=== PATIENT | female | born 1940 | race Caucasian/White ===

== ENCOUNTER → 2016-09-27 | Outpatient (CLI) | payer OTHER ==
[~2016-09-27] MED LIST: ADVAIR 250/501 EA INH; ALBUTEROL0.09 MG/A3; ALPRAZOLAM0.5 M2 PO; ASCRIPTIN1 TAB PO; ASPIRIN81 MG PO; CALCIUM + D 6001 TA1 PO; CELEBREX200 MG PO; COREG3.125 MG PO; CYMBALTA60 MG PO; ENALAPRIL20 MG PO; FISH OIL 10001000 MG PO; HYDROCODONE BIT1 T11 PO; LEVOTHYROXINE0.15 MG PO; LISINOPRIL20 MG PO; MEPERIDINE PO; MIRTAZAPINE30 MG PO; NASONEX0.05 MG/AC NAS; NASONEX0.05 MG/AC NS; NEXIUM20 MG PO; NEXIUM40 MG PO; PROAIR HFA0.09 MG/AC INH; PROVENTIL0.09 MG/AC IH; SPIRIVA18 MCG PO; VICODIN 5/500 505 MG PO; VICODIN ES 7501 TAB PO; ZOCOR20 MG PO
== END | disposition home or self-care (01) ==
LOC: MAMMO 09-16 02:52
DX: Z12.31 Encounter for screening mammogram for malignant neoplasm of breast (principal)

== ENCOUNTER → 2017-07-25 | Outpatient (CLI) | payer OTHER ==
[2017-07-25 09:28] LABS: HEMATOCRIT 39.3 % (37.0-47.0); HEMOGLOBIN 13.2 g/dl (12.0-16.0); MEAN CELL VOLUME 109.5 fl (81.0-99.0); MEAN CORPUSCULAR HGB 36.8 pg (27.0-31.0); MEAN CORPUSCULAR HGB CONC 33.6 g/dl (33.0-37.0); MEAN PLATELET VOLUME 12.4 fl (9.6-12.3); PLATELET COUNT AUTOMATED 258 10*3/uL (130-400); RED BLOOD COUNT 3.59 10*6/uL (4.10-5.10); RED CELL DISTRI WIDTH 16.4 % (0-14.5); WHITE BLOOD COUNT 5.9 10*3/uL (4.8-10.8)
[2017-07-25 10:00] LABS: PLATELET SUFFICIENCY NORMAL (NORMAL); TOTAL CELLS COUNTED 100 #CELLS
[2017-07-25 10:01] LABS: OVALOCYTES FEW
[2017-07-25 10:04] LABS: ALBUMIN 3.4 gm/dl (3.1-4.5); BUN 12 mg/dl (7-24); CHLORIDE 107 mmol/L (98-107); CHOLESTEROL 213 mg/dL (<200); CREATININE 0.78 mg/dL (0.55-1.02); POTASSIUM 3.9 mmol/L (3.5-5.1); SGOT/AST 9 IU/L (3-35); SGPT/ALT 15 U/L (12-78); SODIUM 143 mmol/L (136-145); TRIGLYCERIDES 72 mg/dl (<150); VLDL CHOLESTEROL 14 mg/dL (6-40)
[2017-07-25 10:14] LABS: ALKALINE PHOSPHATASE 71 U/L (45-117); HDL CHOLESTEROL 55 mg/dl (40-60); LDL CHOLESTEROL 144 mg/dL (9-159); TOTAL PROTEIN 6.9 gm/dL (6.4-8.2)
== END | disposition home or self-care (01) ==
LOC: LAB 08:29
PROVIDERS: Internal Medicine
DX: E03.9 Hypothyroidism, unspecified (principal); D75.89 Other specified diseases of blood and blood-forming organs; I10 Essential (primary) hypertension; E55.9 Vitamin D deficiency, unspecified

== ENCOUNTER 2018-01-15 11:01 | Emergency (ER) | payer OTHER ==
[~2018-01-15] VITALS: Ht 162.5 cm; Wt 67.1 kg
--- NOTE | ~2018-01-15 | EKG ---
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
[2018-01-15 11:06] VITALS: BP 161/54
[2018-01-15 11:21] LABS: BILIRUBIN NEGATIVE (NEGATIVE); BLOOD NEGATIVE (NEGATIVE); CLARITY CLEAR (CLEAR); COLOR YELLOW (YELLOW); GLUCOSE NEGATIVE (NEGATIVE); KETONE NEGATIVE (NEGATIVE); LEUKO ESTERASE NEGATIVE (NEGATIVE); NITRITE NEGATIVE (NEGATIVE); SPECIFIC GRAVITY <= 1.005 (1.005-1.030); UROBILINOGEN 0.2 E.U./dl (0.2-1.0)
[2018-01-15 11:40] LABS: BACTERIA TRACE; RBC 0-2 rbc/hpf (0-2); WBC 0-2 wbc/hpf (0-5)
[2018-01-15 11:47] LABS: HEMATOCRIT 37.5 % (37.0-47.0); HEMOGLOBIN 12.3 g/dl (12.0-16.0); MEAN CELL VOLUME 110.3 fl (81.0-99.0); MEAN CORPUSCULAR HGB 36.2 pg (27.0-31.0); MEAN CORPUSCULAR HGB CONC 32.8 g/dl (33.0-37.0); MEAN PLATELET VOLUME 11.2 fl (9.6-12.3); NUCLEATED RED BLOOD CELL 0.4 % (0.0-0.0); PLATELET COUNT AUTOMATED 304 10*3/uL (130-400); RED CELL DISTRI WIDTH 17.6 % (0-14.5); WHITE BLOOD COUNT 5.6 10*3/uL (4.8-10.8)
[2018-01-15 11:55] LABS: ACT PARTIAL THROMBO TIME 24.3 SECONDS (20.8-31.5); INTERNATIONAL NORM RATIO 0.9 (2.0-3.5)
[2018-01-15 12:01] LABS: ALBUMIN 3.7 gm/dl (3.1-4.5); ALKALINE PHOSPHATASE 63 U/L (45-117); BUN 11 mg/dl (7-24); CHLORIDE 105 mmol/L (98-107); LIPASE 144 U/L (73-393); POTASSIUM 4.2 mmol/L (3.5-5.1); SGOT/AST 15 IU/L (3-35); SGPT/ALT 22 U/L (12-78); SODIUM 141 mmol/L (136-145); TOTAL PROTEIN 7.8 gm/dL (6.4-8.2)
[2018-01-15 12:04] LABS: TROPONIN I < 0.015 ng/ml (<0.045)
[2018-01-15 12:12] LABS: PLATELET SUFFICIENCY NORMAL (NORMAL); TOTAL CELLS COUNTED 100 #CELLS
[2018-01-15] MEDS ORDERED: NEXIUM40 MG PO (13:28)
[2018-04-10] MEDS ORDERED: Ipratropium Brom3 ML INH (09:30)
== END 2018-01-15 13:33 | disposition home or self-care (01) ==
LOC: ED 11:01
PROVIDERS: Emergency Medicine
DX: K29.00 Acute gastritis without bleeding (principal); Z79.899 Other long term (current) drug therapy; Z79.82 Long term (current) use of aspirin

== ENCOUNTER → 2018-04-20 | Day surgery (SDC) | payer OTHER ==
[~2018-04-20] VITALS: Ht 165.1 cm; Wt 63.5 kg
[~2018-04-20] MED LIST changes: +Ipratropium Brom3 ML INH
--- NOTE | ~2018-04-20 | PROC NOTE ---
[place], [place] PROCEDURE NOTE NAME: TONJA SUE [facility] #: [id number] UNIT #: [id number] ROOM: DOCTOR: REBECA CHAPMAN MD BIRTHDATE: [birth year] DOS: 04/20/2018 PREOPERATIVE DIAGNOSIS: Lower gastrointestinal bleed. POSTOPERATIVE DIAGNOSIS: Gastritis, duodenitis, diverticulosis, colon polyp (42 cm). PROCEDURE: EGD with antral biopsy x 2, colonoscopy with polypectomy x 1. ENDOSCOPIST: Rebeca Chapman MD HOME PLANNING CONSULTANT SALESPERSON: FABBY. ANESTHESIA: MAC. INDICATIONS: This is a 77-year-old lady with a history of lower GI bleed who is here for the above-mentioned procedure. The procedure and its complications were explained to the patient in detail preoperatively. Complications that were discussed included but were not limited to, bleeding, colon perforation, stomach perforation, and missed lesions. She agreed to proceed. DESCRIPTION OF PROCEDURE: After identifying the patient, the patient was brought to the endoscopy suite and placed in the left lateral position. After IV sedation was administered, a timeout procedure was called and a bite block was placed and the EGD was performed first. An adult gastroscope was introduced into the oral cavity and advanced sequentially into the pharynx, esophagus, stomach and the first 2 parts of the duodenum. There was found to be generalized gastritis as well as mild duodenitis. Two antral biopsies were taken and sent for histopathological diagnosis. Thereafter, the scope was withdrawn. The esophagus was within normal limits. At this point, attention was turned towards the colonoscopy. A digital rectal exam was performed, which was within normal limits. An adult colonoscope was now introduced into the anal canal and advanced sequentially into the rectum, sigmoid colon, descending colon, transverse colon and ascending colon up to the cecum. Upon reaching the cecum, the scope was withdrawn. Total withdrawal time was approximately 10 minutes. At approximately 42 cm, there was found to be a polyp that was removed with the help of snare polypectomy and a specimen was then retrieved and sent for histopathological diagnosis. There was also found to be mild uncomplicated diverticulosis. The scope was then withdrawn and the patient was brought back to the recovery room in stable fashion. Based on these findings, the patient is recommended to have another colonoscopy in the next 3-5 years or sooner if she had continued symptoms. These findings were discussed with the patient's daughter in the recovery room. [place], [place] PROCEDURE NOTE NAME: TONJA SUE UNIT #: [id number] ROOM: DOCTOR: REBECA CHAPMAN MD BIRTHDATE: [birth year] Rebeca Chapman MD CM:PROCNOTE:PROCEDURE NOTE 0922 1736 REBECA CHAPMAN MD
[2018-04-20 07:50] VITALS: BP 152/59
[2018-04-20 09:12] VITALS: BP 130/59
[2018-04-20 09:27] VITALS: BP 154/62
[2018-04-20 09:42] VITALS: BP 153/60
[2018-04-20 09:57] VITALS: BP 151/58
== END | disposition home or self-care (01) ==
LOC: SDC 04-10 10:15
DX: D12.5 Benign neoplasm of sigmoid colon (principal); K57.30 Diverticulosis of large intestine without perforation or abscess without bleeding; K29.50 Unspecified chronic gastritis without bleeding; K29.80 Duodenitis without bleeding; J44.9 Chronic obstructive pulmonary disease, unspecified; M19.90 Unspecified osteoarthritis, unspecified site; E03.9 Hypothyroidism, unspecified; I10 Essential (primary) hypertension; K21.9 Gastro-esophageal reflux disease without esophagitis; M81.0 Age-related osteoporosis without current pathological fracture; F41.9 Anxiety disorder, unspecified; F32.9 Major depressive disorder, single episode, unspecified; F17.210 Nicotine dependence, cigarettes, uncomplicated; G43.909 Migraine, unspecified, not intractable, without status migrainosus; Z79.82 Long term (current) use of aspirin; Z79.899 Other long term (current) drug therapy; Z90.710 Acquired absence of both cervix and uterus; Z98.51 Tubal ligation status; Z98.890 Other specified postprocedural states; Z72.89 Other problems related to lifestyle; Z98.49 Cataract extraction status, unspecified eye; Z82.49 Family history of ischemic heart disease and other diseases of the circulatory system; Z80.0 Family history of malignant neoplasm of digestive organs

== ENCOUNTER 2018-07-02 15:23 | Inpatient (IN) | payer OTHER ==
[~2018-07-02] VITALS: Ht 162.5 cm; Wt 68.0 kg
--- NOTE | ~2018-07-02 | O ---
[place], [place] OPERATIVE NOTE NAME: TONJA SUE UNIT #: [id number] ROOM: 506 DOCTOR: GUS ARREOLA,IAIN BIRTHDATE: [birth year] DOS: INDICATIONS: The patient has presented with multiple medical problems, among which has been persistent epigastric distress, dyspepsia, anemia, undergoing investigation. Consultation has been dictated. PROCEDURE: Today's procedure part of investigation is panendoscopy plus biopsy and photographic series. PREMEDICATION: Propofol. SCOPE: Olympus forward-viewing gastroscope Q10 video. REPORT: After putting the patient in left lateral position and application of lubricant to the scope, the scope was introduced. Thereafter, under direct visualization, advanced through the length of the esophagus without difficulty. Gastric pouch was entered. Multiple gastric erosions and small ulceration in antrum were photographed. Biopsy from margin of 1 was obtained. Duodenal bulb, second and third part within normal limits. The patient extubated, tolerated the procedure well. IMPRESSION: Multiple antral erosions, small ulceration, gastritis, status post biopsy. PLAN AND DISCUSSION: Protonix 40 mg daily would be definitive, plan of management, regular diet as tolerated. Follow up on H and H IAIN WEBER MD CM:OPRECORD:OPERATIVE NOTE 1214 1231 IAIN WEBER MD 07/11/18 1231 interface
--- NOTE | ~2018-07-02 | EKG ---
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
--- NOTE | ~2018-07-02 | CON ---
[place], [place] REPORT OF CONSULTATION NAME: TONJA SUE [facility] #: [id number] UNIT #: [id number] ROOM: 506 DOCTOR: GERRI CHAHAL MDEJ BIRTHDATE: [birth year] DOS: 07/04/2018 PULMONARY CONSULTATION, EVALUATION AND MANAGEMENT CONSULTATION REQUESTED BY: Hospitalist services. REASON FOR CONSULTATION: For assessment of acute pneumonia. The patient report was rather noted quite limited. The history contained document is essential review of medical records by other physician notes well. HISTORY OF PRESENT ILLNESS: This is a 78-year-old white female who has been in the hospital and treated under care of the hospitalist services on 07/02/2018. The patient presented to the hospital Emergency Room with ongoing symptoms of not feeling well about a month. She has been reporting symptoms of shortness of breath that has been gradually worsening occurring with mild exertion activities. The symptoms were also associated coughing with recurrent symptoms. The patient denies symptoms of chest pain. She has been usually seen by the primary care attending and then sent to the hospital. She has been assessed in the hospital Emergency Room and admitted to the hospital for further care of ongoing pneumonia and the pleural effusion, which were noted on the chest x-ray. Presently, she had been receiving the intravenous Rocephin and Zithromax for the medical management of pneumonia and the bronchodilator for medical management of bronchospasm as well. REVIEW OF SYSTEMS: CONSTITUTIONAL SYMPTOMS: Complaining of fatigue and tiredness. Does not report any symptoms of fever or chills. EYES: Denies any burning, redness, or tenderness. EARS, NOSE, AND THROAT: Denies sore throat, hoarseness, otalgia, or epistaxis. CARDIOVASCULAR SYSTEM: Noted with some edema of the lower extremity and ankles with palpitations. GASTROINTESTINAL: Denies any angina pain. GASTROINTESTINAL SYMPTOMS: Denies dysphagia, nausea, vomiting, diarrhea, abdominal pain, hematemesis, melena, or hematochezia. SKIN: Denies abnormal lesions or rashes. CENTRAL NERVOUS SYSTEM: No dizziness, headache, diplopia or syncopal episodes. Remaining systems were reviewed, they were noted all negative. PAST MEDICAL HISTORY: Known as: 1. COPD. 2. Bronchial asthma. 3. Essential hypertension. 4. Depression. 5. Hyperlipidemia. 6. Hypothyroidism. 7. Overactive bladder. 8. Chronic hypoxic respiratory failure, use of oxygen 2 liter nasal cannula. 9. Vitamin D deficiency. [place], [place] REPORT OF CONSULTATION NAME: TONJA SUE UNIT #: [id number] ROOM: [facility] DOCTOR: EJ FELIZ MD BIRTHDATE: [birth year] 10. Tobacco use. PAST SURGICAL HISTORY: Reported as: 1. Surgery of the sinuses. 2. Tubal ligation. 3. Cataract extraction and lens implantation. 4. Complete hysterectomy. 5. Tympanoplasty of the left ear. 6. Right ear surgery as well. SOCIAL HISTORY: The patient lives at home. She has been noted tobacco use from teenager, pack of cigarettes per day, discontinued approximately in 2008. There was no history of alcohol use or any illicit drug use was reported FAMILY HISTORY: Unknown. HOME MEDICATIONS: Listed as aspirin, Plavix, vitamin D, Celexa, Cymbalta, enalapril, vitamin D, fish oil, DuoNeb, levothyroxine, Remeron, oxybutynin, and simvastatin. CURRENT MEDICATIONS: Administered for on this hospitalization were noted as the use of most of the home medications have been resumed the same strength. DuoNeb has been ordered every 6 hours. The patient receiving IV Zithromax and the Rocephin. DRUG ALLERGIES NOTED: No known drug allergies. PHYSICAL EXAMINATION: GENERAL: A 78-year-old elderly female, currently lying in the bed without any distress. Height of 5 feet 4 inches, weight 150 pounds. VITAL SIGNS: For the patient, which have been recorded shows a normal temperature in the last 24 hours, respiratory rate 18-20, heart rate of 67-73, blood pressure 136/76-139/57. HEENT: Shows head was atraumatic. Eyes nonicterus. NECK: Supple. CARDIOVASCULAR: S1, S2 is audible. LUNGS: Noted with crackles essentially noted in the lower portion of the lungs bilaterally. ABDOMEN: Flat, soft, nontender. Bowel sounds present. EXTREMITIES: Without any edema, clubbing or cyanosis. VISIBLE SKIN: No lesions or rashes. CENTRAL NERVOUS SYSTEM: The patient's cranial nerves 2-12 intact. MUSCULOSKELETAL: Without any acute deformities. LABORATORY DATA: The CBC on admission 07/02/2018, WBC count normal, hemoglobin 7.7, platelet count was normal, 2.3% eosinophils. The lactic acid 0.7. CMP that was done, 225. Normal BUN and creatinine. CO2 was 34. The influenza A, B, nasal washing antigen, which were done on 07/02/2018 were negative. CBC that was done on 07/04/2018, hemoglobin 6.2, hematocrit 22.4, platelet count 251,000. BMP as a normal BUN and creatinine. CO2 was still elevated at 36. Blood [place], [place] REPORT OF CONSULTATION NAME: TONJA SUE UNIT #: [id number] ROOM: [facility] DOCTOR: GERRI CHAHAL [facility] BIRTHDATE: [birth year] culture from 07/02/2018 so far has not shown any bacterial growth. Final culture results were pending. Review of the radiology data: The chest x-ray that was done appears to have elevation of the right hemidiaphragm, possibility of volume loss with infiltration as well as associated pleural fluid or pleural thickening. There was no chest x-ray available for the last several years to assess the current finding chronicity for last few years. IMPRESSION: 1. The patient has been currently admitted to the hospital, was noted with increased respiratory symptoms. The patient finding consistent for acute pneumonia is very likely. 2. Clpca-gj-juwwixd hypoxic respiratory failure requiring high amount of oxygen supplementation and the usual 2 liters currently treated initially with 6 liter nasal cannula, currently receiving 4-5 liters of oxygen supplementation. 3. Rule out endobronchial obstruction with atelectasis, rule out malignancy as well and associated pleural fluids. 4. Chronic obstructive pulmonary disease and bronchial asthma does not seem to have an acute exacerbation at present time. History of past tobacco use, which has been discontinued several years ago. History of essential hypertension and multiple other comorbid conditions were known as well. 5. Progressive anemia, rule out gastrointestinal bleeding as well. 6. Metabolic alkalosis, etiology unclear, may be related to chronic obstructive pulmonary disease or other etiologies. PLAN OF MANAGEMENT: The patient will be ordered CT scan of the chest with intravenous contrast for further assessment at this time. Continue current antibiotics and no change in treatment will be advised. After the CT scan of the chest, assess possible consideration of bronchoscopy. Blood transfusion may be needed because of anemia and assessment from the GI services should be recommended for the assessment of current anemia. She does have a history of past polyp removed with colonoscopy. Titrate oxygen supplementation, maintain pulse ox 92% or greater. Obtain the arterial blood gas to assess the ventilatory status and hypoxia. BiPAP could be used if hypoxia persists. Other therapy, plan of management, care plan and additional treatment changes will be done based on progression of the illness. Thanks for allowing me to participate in the care of this patient. EJ TALLEY MD CM:CONSTR:REPORT OF CONSULTATION 1315 07/20/18 1228 interface
--- NOTE | ~2018-07-02 | PR ---
[place], [place] PROGRESS NOTE NAME: TONJA SUE [facility] #: [id number] UNIT #: [id number] ROOM: 506 DOCTOR: GERRI CHAHAL MD,EJ BIRTHDATE: [birth year] DOS: 07/11/2018 PULMONARY PROGRESS NOTE SUBJECTIVE: The patient was doing better with reduction in symptoms of shortness breath and cough after bronchoscopy. Large plugs of the mucus removed from the endobronchial tree, especially in attention to the right middle lobe and the right lower lobe. She denies symptoms of fever or chills. General weakness and fatigue was noted. She denies symptoms of hemoptysis. She denies symptoms of nausea, vomiting, diarrhea, or any abdominal pain. Oxygen supplementation was still continued, at the present time she was receiving oxygen supplementation of 4 liters nasal cannula decreased from 5 liters. OBJECTIVE HEENT: Examination shows head was atraumatic. Eyes nonicterus. NECK: Supple. CARDIOVASCULAR SYSTEM: S1, S2 is audible. LUNGS: Decreased breath sounds still noted in the right lower lung, but improvement noted compared to previous examination. There was no wheezing. ABDOMEN: Soft, nontender. Bowel sounds present. EXTREMITIES: Noted without any edema. MUSCULOSKELETAL: Without any acute deformities. CENTRAL NERVOUS SYSTEM: The patient's cranial nerves 2-12 intact. LABORATORY DATA: Bronchial washing, Gram stain was noted with initial culture with no bacterial growth, final culture results were pending. Gram stain of the bronchial washings of yesterday, few epithelial cells, many white blood cells, and no organisms seen. CBC of this morning: WBC count is normal, hemoglobin is 7.9, hematocrit is 27.0, and platelet count is normal. The BMP, normal BUN and creatinine, CO2 was 39. IMAGING DATA: The chest x-ray shows improvement in the aeration of the right middle lobe, which were noted significantly with small remaining area of atelectasis in the right lower lobe with associated pleural effusion. IMPRESSION: 1. The patient was noted with acute on chronic hypercapnic and hypoxic respiratory failure, acute exacerbation of chronic obstructive pulmonary disease, acute pneumonia, atelectasis secondary to mucus impaction resolving, small pleural fluid related to atelectasis and/or pneumonia combination. 2. Anemia. 3. Overall debility. PLAN OF MANAGEMENT: Monitor culture results. The patient will be started on the incentive spirometry as well. Bronchodilator will be continued. No change in antibiotic will be necessary. Follow culture results. Continue with GI assessment for anemia. The patient may benefit from placement in halfway facility prior to subsequent home discharge. Antibiotic will be discontinued most likely tomorrow after the assessment of the culture results of the bronchial washing if it is noted without any bacterial growths. [place], [place] PROGRESS NOTE NAME: TONJA SUE UNIT #: [id number] ROOM: [facility] DOCTOR: EJ FELIZ MD BIRTHDATE: [birth year] EJ TALLEY MD CM:ANUPAM 1237 36 EJ CHAHAL MD 07/11/18 233 interface
--- NOTE | ~2018-07-02 | PR ---
[place], [place] PROGRESS NOTE NAME: TONJA SUE [facility] #: [id number] UNIT #: [id number] ROOM: 506 DOCTOR: GERRI CHAHAL MD,EJ BIRTHDATE: [birth year] DOS: 07/06/2018 PULMONARY PROGRESS NOTE SUBJECTIVE: The patient underwent thoracentesis yesterday by the Radiology Services. 600 mL of pleural fluid were removed. The pleural fluid was sent for all the testing as well. She has reported significant improvement in the respiratory status after the completion of thoracentesis. Denies symptoms of chest pain. Coughing has been noted mild to moderate intermittently with small amount of sputum expectoration. Denies symptoms of fever or chills. Denies symptoms of abdominal pain, nausea, vomiting, diarrhea or any abdominal pain. She denies any pain of the lower extremities. OBJECTIVE: VITAL SIGNS: For the patient which has been recorded shows the temperature was recorded as normal The respiratory rate of 17-16, heart rate of 61-72, blood pressure 122/50-130/50. The pulse oxygen saturation 5 liter nasal cannula 92% saturation. HEENT: Examination shows head was atraumatic. Eyes nonicterus. NECK: Supple. CARDIOVASCULAR: S1, S2 audible. LUNGS: The patient was noted with minimal crackles in the lungs. ABDOMEN: Soft, nontender, bowel sounds present. EXTREMITIES: Without edema. MUSCULOSKELETAL: Without any deformity. CENTRAL NERVOUS SYSTEM: Cranial nerves 2-12 intact. VISIBLE SKIN: No lesions or rashes. LABORATORY DATA: Urine for Legionella antigen and strep antigen both noted negative. Culture of the sputum noted as normal kristian. The BMP this morning, normal BUN and creatinine. CO2 was 36, which are noted persistently elevated for metabolic alkalosis finding. CBC today: WBC count 6.1, hemoglobin 7.7, hematocrit 26.4, platelet count was normal. Pleural fluid analysis that was done shows total cells were noted as 306 with 42% macrophages, 34% lymphocytes. The cytology of the pleural fluid was pending. Glucose 99, protein 2.2, LDL 69, pH of 7.67. The other labs were also reviewed. All the finding suggestive of a transudative pleural effusion. Cultures of the fluid was noted without any bacterial growth. IMPRESSION: 1. The patient with right-sided partially loculated pleural fluid, status post thoracentesis with atelectasis, infiltration, currently presumably treated for the pneumonia. However, the pleural fluid was noted more of a transudative effusion at the present time. May be related to the atelectasis, congestive heart failure and other assessment to be considered. 2. The patient with current pleural fluid infiltration with possibility of viral pneumonia to be considered with the pleural fluid at this time in the differential diagnosis. The differential with recurrent transudative effusion to be considered. Cardiac etiology such as congestive heart failure. 3. Chronic metabolic alkalosis. [place], [place] PROGRESS NOTE [id number] #: [id number] ROOM: [facility] DOCTOR: GERRI CHAHAL MD,EJ BIRTHDATE: [birth year] 4. The patient with chronic obstructive pulmonary disease as well with history of nicotine use. 5. Chronic hypercapnia with acute hypoxic respiratory failure. PLAN OF MANAGEMENT: No changes in antibiotic. Obtain a chest x-ray to reassess the pulmonary status. Titrate oxygen supplementation, maintain pulse ox 92% or greater. Follow the cytology of the pleural fluid as well. Other additional treatment changes would be made based on progression of the illness. Continuation of the bronchodilators. EJ TALLEY MD CM:PNBRYN 1141 1215 EJ CHAHAL MD 07/06/18 1215 interface
--- NOTE | ~2018-07-02 | PROC NOTE ---
[place], [place] PROCEDURE NOTE NAME: TONJA SUE [facility] #: [id number] UNIT #: [id number] ROOM: 506 DOCTOR: MÓNICA SLATER BIRTHDATE: [birth year] DOS: 07/03/2018 MODIFIED BARIUM SWALLOW LOCATION: [facility], room 506, bed 2. ORDERING PHYSICIAN: Dr. Bell. RADIOLOGIST: Dr. Hernandez. BACKGROUND INFORMATION: The patient is a 78-year-old female who was seen for modified barium swallow. This test was ordered to rule out aspiration. The patient is diagnosed with pneumonia and further medical history includes asthma, gastroesophageal reflux disease, COPD, pneumonia, and history of smoking for the past 50 years. The patient reported difficulty characterized by sensation of globus when swallowing bread. The patient also reported weight loss of about 50 pounds over the past year. She currently receives a regular diet and thin liquids. She was alert and cooperative for the assessment. The patient was receiving oxygen via nasal cannula, congestion and wheezing were displayed. The patient presented with upper and lower dentures with loose fit reported. Oral strength, range of motion and coordination were within normal limits. The patient was able to volitionally cough and swallow. METHODS AND MATERIALS USED FOR THE EXAM: The patient was positioned in the lateral plane and the exam was viewed under fluoroscopy. The patient was presented with a variety of consistencies to assess swallowing skills including applesauce mixed barium presented in half teaspoon amounts, barium-coated cookie and sandwich given in bite-size pieces and thin liquid barium presented by cup and straw. ORAL PHASE: Unremarkable. PHARYNGEAL PHASE: The patient elicited a timely swallow with all consistencies given. No aspiration occurred with any consistency and there was no residue in the pharynx. When the patient consumed thin liquids by cup and straw, she was noted to take large sips with transient upper airway penetration occurring. No aspiration occurred with thin liquids, however. ESOPHAGEAL PHASE: This phase of the swallow was not formally assessed during this exam. IMPRESSIONS AND RECOMMENDATIONS: Based upon assessment results, this 78-year-old patient presents with functional oral and pharyngeal swallowing skills. She did display transient upper airway penetration with thin liquids when taking large sips. It is recommended that she remain on present diet with consumption of small bites and sips. Short term therapy is recommended for one to two visits to ensure safe consumption of meal and adherence to safe swallow precautions. Results and recommendations were shared with the patient and her nurse and they verbalized understanding. [place], [place] PROCEDURE NOTE NAME: TONJA SUE UNIT #: [id number] ROOM: [facility] DOCTOR: MÓNICA SLATER BIRTHDATE: [birth year] Thank you very much for this referral. Should you have any questions regarding this patient, please contact the speech pathologist at [phone]. MÓNICA SLATER CM:PROCNOTE:PROCEDURE NOTE 1608 0509 MÓNICA SLATER
--- NOTE | ~2018-07-02 | PR ---
[place], [place] PROGRESS NOTE NAME: TONJA SUE UNIT #: [id number] ROOM: 506 DOCTOR: EJ FELIZ MD BIRTHDATE: [birth year] DOS: 07/09/2018 PULMONARY PROGRESS NOTE SUBJECTIVE: The patient was seen and examined on 07/09/2018. She has been noted the same as previously. Oxygen supplementation is still noted 5 liters nasal cannula. She denies symptoms of coughing. There was no chest pain reported. There were no symptoms of fever or chills or hemoptysis. The patient denies symptoms of abdominal pain, nausea, vomiting, or diarrhea. She denies symptoms of hematemesis, melena, or hematochezia. She denies symptoms of headache. Remaining systems were reviewed and they were noted all negative. OBJECTIVE: VITAL SIGNS: Normal temperature, respiratory rate is 18, heart rate is 77, blood pressure is 151/57-170/48. Pulse oxygen saturation recorded on 4 liters nasal cannula is 94% saturation. HEENT: Examination shows head was atraumatic. Eyes nonicterus. NECK: Supple. CARDIOVASCULAR SYSTEM: S1, S2 audible. LUNGS: The patient was noted without any crackle, rhonchi, or wheezing. ABDOMEN: Soft, nontender. Bowel sounds present. EXTREMITIES: No acute change. LABORATORY DATA: Hemoglobin today is 7.9 and hematocrit is 27.2. The stool for occult blood is negative. IMAGING DATA: Chest x-ray that was done this morning reviewed, shows evidence of right middle lobe atelectasis still noted, at the present time pleural fluid appeared to be small with the lateral view of the chest x-ray. IMPRESSION AND PLAN: The patient with right middle lobe atelectasis, which are noted persistent with improvement of pleural fluid. The therapeutic bronchoscopy will be done for the assessment of the endobronchial to exclude any malignant process. Continue in the meantime other therapy, oxygen supplementation, bronchodilator, assessment for the anemia would be continued as well. Usual care, other supportive plan of management, and care plan and therapies. Additional treatment changes will be done based on progression of the illness. [place], [place] PROGRESS NOTE NAME: TONJA SUE UNIT #: [id number] ROOM: 506 DOCTOR: EJ FELIZ MD BIRTHDATE: [birth year] EJ TALLEY MD CM:PNTRANS 1211 EJ CHAHAL MD 07/10/18 0044 interface
--- NOTE | ~2018-07-02 | CON ---
[place], [place] REPORT OF CONSULTATION NAME: TONJA SUE UNIT #: [id number] ROOM: 506 DOCTOR: GUS ARREOLAIAIN BIRTHDATE: [birth year] DOS: 07/11/2018 HISTORY OF PRESENT ILLNESS: The patient has presented with multiple medical issues, among which have been shortness of breath, epigastric distress, and swallowing difficulty, normal modified barium swallow. Bronchoscopy was done yesterday and breathing status has been stabilized by Pulmonary Medicine Services. Her initial H and H were 6 and 22 and her platelet count was normal. Basic metabolic panel within normal limits. Electrolytes were balanced. Rapid flus were negative. PAST MEDICAL HISTORY: Associated with COPD, hyperlipidemia, systemic hypertension, bronchitis, hypothyroidism, and anemia. PAST SURGICAL HISTORY: Cataract, hysterectomy, ears, tubal ligation. SOCIAL HISTORY: Smoker, nonalcohol consumer. MEDICATION LIST: Has been reviewed, included Plavix and aspirin. ALLERGIES: No known medications. REVIEW OF SYSTEMS: In general: HEENT: Denies double vision or blurred vision. RESPIRATORY: Admits to shortness of breath. CARDIOVASCULAR: Denies chest pain. DIGESTIVE SYSTEM: Gross abdominal epigastric pain. PHYSICAL EXAMINATION: VITAL SIGNS: Stable. GENERAL: Alert and oriented patient. HEENT: Head is normocephalic, nontraumatic. Mouth and buccal mucosa edentulous. No aphthous ulcer. No thrush. NECK: Supple. No thyromegaly. No cervical lymphadenopathy. CHEST: A few scattered wheezes anteroposteriorly. HEART: Normal sinus rhythm. No gallop, no murmur. ABDOMEN: Soft. No hepato-organomegaly. Bowel sounds present. No pulsatile mass. EXTREMITIES: No cyanosis. No pedal edema. NEUROLOGIC: Fully alert, oriented to time, place, and person. IMPRESSION: Profound anemia, status post bronchoscopy, status post stabilization. Latest H and H today have improved to 7.9 and 27. Cultures are negative. Other adjunctive diagnoses as outlined in the paragraph of past medical and surgical history above as dictated. PLAN AND DISCUSSION: We will proceed with endoscopy of upper GI tract. Stabilization of multiple other systemic issues including COPD, bronchitis, depression, hyperlipidemia, hypothyroidism, and O2 dependency all being addressed along with hypertension. [place], [place] REPORT OF CONSULTATION NAME: TONJA SUE Kassandra UNIT #: [id number] ROOM: [facility] DOCTOR: IAIN WEBER MD BIRTHDATE: [birth year] IAIN WEBER MD CM:CONSTR:REPORT OF CONSULTATION 1149 07/11/18 6677 interface
--- NOTE | ~2018-07-02 | PROC NOTE ---
[place], [place] PROCEDURE NOTE NAME: TONJA SUE [facility] #: [id number] UNIT #: [id number] ROOM: 506 DOCTOR: EJ FELIZ MD BIRTHDATE: [birth year] DOS: 07/10/2018 PROCEDURE: Bronchoscopy. PREOPERATIVE DIAGNOSES: Persistent right middle lobe atelectasis, rule out endobronchial obstruction including possible malignancy, mucus plugs and others. POSTOPERATIVE DIAGNOSES: Evidence of large plugs of mucus noted for the patient impaction of the right main stem bronchus completely and partial impaction of multiple other endobronchial subsegments bilaterally. There were no endobronchial obstructive lesion. PROCEDURE DESCRIPTION: Informed consent was obtained with the patient. The patient brought to the OR. The patient was placed in a supine position. Conscious sedation administered by the Anesthesia Department. After achieving proper sedation, airway introduced into the mouth. Bronchoscope advanced to the airway into laryngeal area. Epiglottis and vocal cords were seen. The vocal cords were noted yellowish in color moving symmetrically with movements. Bronchoscope entered vocal cord and tracheal lumen noted with moderate amount of thick mucoid secretion with some purulent secretion suctioned out at maryjane level. All secretions suctioned out at maryjane level. After that, inspection of the right upper, right middle, right lower, left upper, lingula and lower lobe bronchus were done. The patient was noted with a large plug of the mucus with complete occlusion of right main stem bronchus in addition to a [id number] impaction of the mucus were noted partial occlusion of the endobronchial tree bilaterally. All secretions suctioned out clear with the help of normal saline wash, sent for culture. Procedure well tolerated by the patient without any complications. Postoperative finding will be discussed with the patient once the patient is recovered with the effects of acute sedation. Chest x-ray will be repeated in the morning to assess the resolution of the atelectasis after the current bronchoscopy. EJ TALLEY MD CM:PROCNOTE:PROCEDURE NOTE 1230 1300 EJ CHAHAL MD
--- NOTE | ~2018-07-02 | PR ---
[place], [place] PROGRESS NOTE NAME: TONJA SUE [facility] #: [id number] UNIT #: [id number] ROOM: 506 DOCTOR: GERRI CHAHAL MD,EJ BIRTHDATE: [birth year] DOS: 07/10/2018 PULMONARY PROGRESS NOTE SUBJECTIVE: The patient remains essentially the same, still requires oxygen supplementation, high flow nasal cannula 4-5 liters. She had not been noted symptoms of chest pain. Cough has been noted without any sputum expectoration. Denies symptoms of chest pain or hemoptysis. Denies symptoms of nausea, vomiting, diarrhea, abdominal pain, hematemesis, or melena. Denies pain of the lower extremities or edema of the lower extremities. Remaining systems were reviewed, they were noted all negative. The patient is currently n.p.o. for the bronchoscopy planned for today. OBJECTIVE: GENERAL: The patient comfortably resting at this time on the bed. She has not been noted in any distress at this time, using oxygen supplementation. VITAL SIGNS: For the patient which were recorded showed the temperature noted as normal. The respiratory rate of the recorded as 16, heart rate 72, blood pressure 130/47. HEENT: Examination shows head was atraumatic. Eyes nonicterus. NECK: Supple. CARDIOVASCULAR: S1, S2 is audible. LUNGS: Without any wheezing or crackles. Decreased breath sounds in the right lower lung as previously. ABDOMEN: Flat, soft, and nontender. Bowel sounds are present. EXTREMITIES: Without edema. MUSCULOSKELETAL: Without acute deformities. CENTRAL NERVOUS SYSTEM: No gross focal neurologic deficit. LABORATORY DATA: The PT, PTT that was done yesterday was negative. Respiratory virus panel collected 07/04/2018, nasopharyngeal swab was noted negative as well. The platelet function assay noted abnormal, most likely due to medication. IMPRESSION: 1. Persistent area of atelectasis, right middle lobe with small associated pleural fluid and acute respiratory failure requiring oxygen supplementation with high flow nasal cannula. 2. The patient with acute exacerbation of chronic obstructive pulmonary disease as well. 3. Acute pneumonia. 4. Pleural fluid which has been removed by thoracentesis on this admission. PLAN OF MANAGEMENT: Proceed with the bronchoscopy. Make changes for the patient after that as necessary. Continue oxygen supplementation, bronchodilators, antibiotics and corticosteroids. Other therapy, plan of management and care plan for the patient changes to be made based on the progression of the illness. [place], [place] PROGRESS NOTE NAME: TONJA SUE Kassandra UNIT #: [id number] ROOM: 506 DOCTOR: GERRI CHAHAL MD,EJ BIRTHDATE: [birth year] EJ TALLEY MD CM:PNTRANS 1227 125 EJ CHAHAL MD 07/10/18 1253 interface
--- NOTE | ~2018-07-02 | PR ---
[place], [place] PROGRESS NOTE [id number] UNIT #: [id number] ROOM: 506 DOCTOR: GERRI CHAHAL MD,EJ BIRTHDATE: [birth year] DOS: 07/08/2018 SUBJECTIVE: The patient has been noted comfortable at this time, resting in the bed. She has not been noted any ongoing acute complaints. Use of oxygen supplementation noted still at 4-5 liters nasal cannula. Denies symptoms of chest pain or hemoptysis. OBJECTIVE: VITAL SIGNS: For the patient which has been recorded showed normal temperature, respiratory rate 18, heart 63, blood pressure 131/50. The pulse oxygen saturation on 5 liters nasal cannula 95% saturation. BiPAP was 98% saturation 40% oxygen. HEENT: Examination shows head was atraumatic. Eyes nonicterus. NECK: Supple. CARDIOVASCULAR: S1, S2 is audible. LUNGS: The patient without any wheezing or crackles. Some decreased breath sounds noted in the right lower lung. ABDOMEN: Soft, nontender. Bowel sounds present. EXTREMITIES: No acute change. IMPRESSION: Stable respiratory status partially loculated right pleural fluid, status post thoracentesis, respiratory failure with hypercapnia as well. PLAN OF MANAGEMENT: Titrate oxygen supplementation, maintain pulse ox 92% or greater. Possible discharge home consideration in the morning. Once the oxygen supplementation is decreased further from 5 liters to about 3 or 4 liters. EJ TALLEY MD CM:PNTRANS 1421 28 EJ CHAHAL MD 07/08/181928 interface
--- NOTE | ~2018-07-02 | PR ---
[place], [place] PROGRESS NOTE NAME: TONJA SUE [facility] #: [id number] UNIT #: [id number] ROOM: 506 DOCTOR: GERRI CHAHAL MD,EJ BIRTHDATE: [birth year] DOS: 07/05/2018 SUBJECTIVE: The patient was started on BiPAP yesterday after getting arterial blood gases which has been tolerated by the patient. She has used several hours of BiPAP last night and during the daytime yesterday as well. Oxygen requirement still noted high flow oxygen supplementation nasal cannula 5-6 liters. Denies symptoms of chest pain. The patient does have some symptoms of cough with a small amount of sputum expectoration. There were no symptoms of chest pain. Denies any wheezing at the present time. Denies symptoms of nausea, vomiting, diarrhea, abdominal pain, hematemesis, melena, or hematochezia. The remaining systems were reviewed and they were noted all negative. OBJECTIVE: VITAL SIGNS: For the patient which has been recorded showed the temperature noted as normal, respiratory rate 22, heart rate of 84, blood pressure 138/74, pulse ox saturation 5 liters nasal cannula 91% saturation. BiPAP 93% saturation as well. HEENT: Examination shows head was atraumatic. Eyes nonicterus. NECK: Supple. CARDIOVASCULAR: S1, S2 is audible. LUNGS: Decreased breaths in the right lower lung. ABDOMEN: Soft and nontender. Bowel sounds are present. EXTREMITIES: No acute changes. VISIBLE SKIN: No lesions or rashes. MUSCULOSKELETAL: Without any acute deformities. CENTRAL NERVOUS SYSTEM: General weakness and fatigue. LABORATORY DATA: CBC today, WBC count 9.6, hemoglobin 8.1, hematocrit 27.7, and platelet count was normal. Eosinophil 4.4%. BMP, normal BUN and creatinine. CO2 of 37. Culture of the sputum, normal kristian. The Gram stain yesterday, moderate white blood cell, few epithelial cells, moderate gram-negative bacilli, gram-positive cocci in clusters and few budding yeast. Arterial blood gas yesterday pH of 7.36, pCO2 of 62, pO2 of 65 on [address] scan of the chest that was done was noted with evidence of pleural fluid, area of infiltration, atelectasis, partial loculation of the pleural fluid was also seen. IMPRESSION: 1. The patient with acute respiratory failure with chronic hypercapnia. 2. The patient with partially loculated right pleural fluid with acute pneumonia. 3. Eosinophilia as well. 4. Chronic obstructive pulmonary disease as well. PLAN OF MANAGEMENT: Continuation of the oxygen supplementation, bronchodilators and the antibiotics. Image-guided ultrasound, thoracentesis was ordered to be done by the Interventional Radiology Services. The pleural fluid will be sent for all the necessary tests. Titrate oxygen supplementation to maintain pulse ox 92% or greater. Other usual care, plan of management therapy and care plan. [place], [place] PROGRESS NOTE NAME: LINETTETONJA Kassandra [facility]: [id number] UNIT #: [id number] ROOM: [facility] DOCTOR: EJ FELIZ MD BIRTHDATE: [birth year] Usual care, other supportive plan of treatment and therapies. Additional treatment changes will be made based on progression of illness. EJ TALLEY MD CM:PNBRYN 1034 1217 EJ CHAHAL MD 07/05/18 1216 interface
--- NOTE | ~2018-07-02 | PR ---
[place], [place] PROGRESS NOTE NAME: TONJA SUE UNIT #: [id number] ROOM: 506 DOCTOR: GERRI CHAHAL MD,EJ BIRTHDATE: [birth year] DOS: 07/07/2018 PULMONARY PROGRESS NOTE SUBJECTIVE: The patient noted comfortable at this time, resting in the bed this morning, still using oxygen supplementation about 5 liters nasal cannula. Denies symptoms of fever or chills. There were no symptoms of hemoptysis. Denies symptoms of nausea, vomiting, diarrhea or any abdominal pain. Denies symptoms of abdominal pain. The patient denies any headache or diplopia. General weakness and fatigue was noted, partially decreased. The remaining system review for the patient, they were noted all negative. OBJECTIVE: VITAL SIGNS: Blood pressure normal as of 109/47-127/53, heart rate 55-64, respiratory rate of 17, temperature normal. Pulse oxygen saturation recorded as 97% saturation on 5 liters nasal cannula. HEENT: Examination shows head was atraumatic. Eyes nonicterus. NECK: Supple. CARDIOVASCULAR: S1, S2 is audible. LUNGS: The patient was noted without any wheeze or crackles. ABDOMEN: Soft, nontender. Bowel sounds present. EXTREMITIES: Without any acute edema. MUSCULOSKELETAL: Without any acute deformities. LABORATORY DATA: TB Gold test was noted negative. Urine for Legionella antigen were noted negative. Chest x-ray yesterday was reviewed, shows continued improvement in aeration of the lung was noted, small pleural fluid at this time and incomplete resolution of pulmonary infiltration. CBC today was noted with a hemoglobin of 7.6 and hematocrit 25.7. IMPRESSION: 1. The patient with acute hypoxic respiratory failure with hypercapnia. 2. Pleural fluid negative for any bacterial growth, status post thoracentesis 2 days ago. The area of atelectasis in the lower lungs. 3. Anemia, etiology unclear. PLAN OF MANAGEMENT: Continuation of current plan of management, antibiotics, bronchodilators, titrate oxygen supplementation 92% or greater. Recommendation about getting a consultation from the GI service for the assessment of anemia. All other supportive plan of management, care plan. No additional change at this time in treatment will be necessary. Monitor respiratory status. [place], [place] PROGRESS NOTE NAME: TONJA SUE UNIT #: [id number] ROOM: 506 DOCTOR: EJ FELIZ MD BIRTHDATE: [birth year] EJ TALLEY MD CM:PNTRANS 1428 1549 EJ CHAHAL MD 07/20/18 1230 interface
--- NOTE | ~2018-07-02 | EKG ---
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
--- NOTE | ~2018-07-02 | PR ---
[place], [place] PROGRESS NOTE [id number] #: [id number] ROOM: 506 DOCTOR: GERRI CHAHAL MD,EJ BIRTHDATE: [birth year] DOS: 07/12/2018 SUBJECTIVE: The patient was noted comfortable at this time, resting in the bed, has not been noted any ongoing acute new respiratory complaints. Continue oxygen supplementation 4 liters cannula. Denies symptoms of fever or chills. OBJECTIVE: VITAL SIGNS: Normal temperature, respiratory rate 18, heart rate 64, and blood pressure 90/48. Pulse ox saturation on 4 liters nasal cannula 95% saturation recorded. HEENT: Examination shows head was atraumatic. Eyes nonicterus. NECK: Supple. CARDIOVASCULAR: S1, S2 heard. LUNGS: Still noted decreased breath in lower portion of the lungs bilaterally. ABDOMEN: Soft and nontender. Bowel sounds present. EXTREMITIES: The patient noted without acute edema. IMPRESSION: The patient with resolving atelectasis of the lung, pleural fluid with exacerbation of chronic obstructive pulmonary disease, [id number] respiratory failure. PLAN OF MANAGEMENT: The patient will be reassessed for the home oxygen, may be considered from discharge with the patient's oxygen requirement has been noted on 4 liters or less. Discharge planning discussed with Ruby Gardiner. EJ TALLEY MD CM:PNTRANS 1222 1245 EJ CHAHAL MD 07/20/18 1231 interface
[2018-07-02 15:25] VITALS: BP 155/55
[2018-07-02 16:30] VITALS: BP 148/76
[2018-07-02 16:36] LABS: BASO % 0.4 % (0.0-1.0); EOS # 0.2 10*3/uL (0.0-0.4); EOS % 2.3 % (1.0-4.0); HEMATOCRIT 26.3 % (37.0-47.0); HEMOGLOBIN 7.7 g/dl (12.0-16.0); LYMPH # 1.5 10*3/uL (1.3-4.4); LYMPH % 16.6 % (27.0-41.0); MEAN CELL VOLUME 92.6 fl (81.0-99.0); MEAN CORPUSCULAR HGB 27.1 pg (27.0-31.0); MEAN CORPUSCULAR HGB CONC 29.3 g/dl (33.0-37.0); MEAN PLATELET VOLUME 11.4 fl (9.6-12.3); MONO # 0.4 10*3/uL (0.1-1.0); MONO % 4.4 % (3.0-9.0); NEUT # 6.8 10*3/uL (2.3-7.9); NEUT % 75.3 % (47.0-73.0); PLATELET COUNT AUTOMATED 265 10*3/uL (130-400); RED BLOOD COUNT 2.84 10*6/uL (4.10-5.10); RED CELL DISTRI WIDTH 21.7 % (0-14.5)
[2018-07-02 17:00] LABS: ALBUMIN 3.1 gm/dl (3.1-4.5); ALKALINE PHOSPHATASE 73 U/L (45-117); BUN 10 mg/dl (7-24); CHLORIDE 101 mmol/L (98-107); CREATININE 0.66 mg/dL (0.55-1.02); POTASSIUM 3.8 mmol/L (3.5-5.1); SGOT/AST 11 IU/L (3-35); SGPT/ALT 14 U/L (12-78); SODIUM 139 mmol/L (136-145); TOTAL PROTEIN 7.3 gm/dL (6.4-8.2); TROPONIN I 0.025 ng/ml (<0.045)
[2018-07-02 18:16] VITALS: BP 151/38
[2018-07-02] MEDS ORDERED: SYNTHROID,LEV112 MCG PO (18:57)
[2018-07-02] MEDS ORDERED: SIMVASTATIN10 MG PO (18:58)
[2018-07-02] MEDS ORDERED: VITAMIN D50000 UNIT PO (18:59)
[2018-07-02] MEDS ORDERED: OXYBUTYNIN5 MG PO (19:00)
[2018-07-02] MEDS ORDERED: VITAMIN D22000 UNIT PO (19:00)
[2018-07-02] MEDS ORDERED: CELEXA40 MG PO (19:01)
[2018-07-02 20:00] VITALS: BP 143/52
[2018-07-03] VITALS: BP 121/50
[2018-07-03 06:05] LABS: BASO % 0.2 % (0.0-1.0); HEMATOCRIT 25.1 % (37.0-47.0); HEMOGLOBIN 7.3 g/dl (12.0-16.0); LYMPH % 12.7 % (27.0-41.0); MEAN CELL VOLUME 91.3 fl (81.0-99.0); MEAN CORPUSCULAR HGB 26.5 pg (27.0-31.0); MEAN CORPUSCULAR HGB CONC 29.1 g/dl (33.0-37.0); MEAN PLATELET VOLUME 12.7 fl (9.6-12.3); MONO # 0.3 10*3/uL (0.1-1.0); MONO % 3.8 % (3.0-9.0); NEUT # 6.7 10*3/uL (2.3-7.9); NEUT % 82.2 % (47.0-73.0); NUCLEATED RED BLOOD CELL 0.2 % (0.0-0.0); PLATELET COUNT AUTOMATED 278 10*3/uL (130-400); RED BLOOD COUNT 2.75 10*6/uL (4.10-5.10); RED CELL DISTRI WIDTH 21.3 % (0-14.5); WHITE BLOOD COUNT 8.1 10*3/uL (4.8-10.8)
[2018-07-03 06:14] LABS: BUN 11 mg/dl (7-24); CHLORIDE 104 mmol/L (98-107); CHOLESTEROL 129 mg/dL (<200); CREATININE 0.63 mg/dL (0.55-1.02); HDL CHOLESTEROL 43 mg/dl (40-60); LDL CHOLESTEROL 73 mg/dL (9-159); POTASSIUM 4.4 mmol/L (3.5-5.1); SODIUM 141 mmol/L (136-145); TRIGLYCERIDES 67 mg/dl (<150); VLDL CHOLESTEROL 13 mg/dL (6-40)
[2018-07-03 06:15] LABS: TROPONIN I 0.017 ng/ml (<0.045)
[2018-07-03 06:18] LABS: ACT PARTIAL THROMBO TIME 23.4 SECONDS (20.8-31.5)
[2018-07-03 08:00] VITALS: BP 130/60
[2018-07-03 08:40] LABS: VITAMIN D, 25-HYDROXY 72.4 ng/mL (30-100)
[2018-07-03 12:00] VITALS: BP 111/48
[2018-07-03 16:00] VITALS: BP 123/55
[2018-07-03 20:00] VITALS: BP 99/70
[2018-07-03 21:35] VITALS: BP 135/53
[2018-07-04] VITALS (12 sets, daily range): BP systolic 113–151; BP diastolic 38–76
[2018-07-04 06:15] LABS: BASO % 0.4 % (0.0-1.0); EOS # 0.3 10*3/uL (0.0-0.4); EOS % 3.2 % (1.0-4.0); HEMATOCRIT 22.4 % (37.0-47.0); HEMOGLOBIN 6.2 g/dl (12.0-16.0); LYMPH # 2.2 10*3/uL (1.3-4.4); LYMPH % 22.9 % (27.0-41.0); MEAN CELL VOLUME 93.7 fl (81.0-99.0); MEAN CORPUSCULAR HGB 25.9 pg (27.0-31.0); MEAN CORPUSCULAR HGB CONC 27.7 g/dl (33.0-37.0); MEAN PLATELET VOLUME 11.7 fl (9.6-12.3); MONO # 0.5 10*3/uL (0.1-1.0); MONO % 5.3 % (3.0-9.0); NEUT # 6.3 10*3/uL (2.3-7.9); NEUT % 67.2 % (47.0-73.0); PLATELET COUNT AUTOMATED 251 10*3/uL (130-400); RED BLOOD COUNT 2.39 10*6/uL (4.10-5.10); RED CELL DISTRI WIDTH 21.4 % (0-14.5); WHITE BLOOD COUNT 9.4 10*3/uL (4.8-10.8)
[2018-07-04 06:42] LABS: BUN 13 mg/dl (7-24); CHLORIDE 106 mmol/L (98-107); CREATININE 0.68 mg/dL (0.55-1.02); POTASSIUM 4.3 mmol/L (3.5-5.1); SODIUM 143 mmol/L (136-145)
[2018-07-04 10:57] LABS: IRON 9 ug/dL (50-170); TOTAL IRON BINDING CAPACITY 362 ug/dl (250-450)
[2018-07-04 13:38] LABS: ABG BASE EXCESS 8.3 mmol/L (-2.0-2.0); ABG HCO3 34.5 mmol/l (22-26); ABG O2 SATURATION 92.4 % (95-97); ARTERIAL BLOOD GAS PCO2 62.4 mmHg (35-45); ARTERIAL BLOOD GAS PH 7.361 (7.35-7.45); ARTERIAL BLOOD GAS PO2 65.6 mmHg (80-90)
[2018-07-04 16:39] LABS: BASO # 0.1 10*3/uL (0.0-0.1); BASO % 0.5 % (0.0-1.0); EOS # 0.3 10*3/uL (0.0-0.4); EOS % 3.1 % (1.0-4.0); HEMATOCRIT 26.4 % (37.0-47.0); LYMPH # 1.6 10*3/uL (1.3-4.4); MEAN CORPUSCULAR HGB 27.9 pg (27.0-31.0); MEAN CORPUSCULAR HGB CONC 30.3 g/dl (33.0-37.0); MEAN PLATELET VOLUME 11.1 fl (9.6-12.3); MONO # 0.5 10*3/uL (0.1-1.0); MONO % 5.4 % (3.0-9.0); NEUT % 73.4 % (47.0-73.0); PLATELET COUNT AUTOMATED 274 10*3/uL (130-400); RED BLOOD COUNT 2.87 10*6/uL (4.10-5.10); RED CELL DISTRI WIDTH 20.2 % (0-14.5); WHITE BLOOD COUNT 9.6 10*3/uL (4.8-10.8)
[2018-07-05] VITALS (14 sets, daily range): BP systolic 111–144; BP diastolic 42–74
[2018-07-05 06:57] LABS: BASO # 0.1 10*3/uL (0.0-0.1); BASO % 0.5 % (0.0-1.0); EOS # 0.4 10*3/uL (0.0-0.4); EOS % 4.4 % (1.0-4.0); HEMATOCRIT 27.7 % (37.0-47.0); HEMOGLOBIN 8.1 g/dl (12.0-16.0); LYMPH # 1.5 10*3/uL (1.3-4.4); LYMPH % 15.2 % (27.0-41.0); MEAN CELL VOLUME 92.6 fl (81.0-99.0); MEAN CORPUSCULAR HGB 27.1 pg (27.0-31.0); MEAN CORPUSCULAR HGB CONC 29.2 g/dl (33.0-37.0); MEAN PLATELET VOLUME 11.8 fl (9.6-12.3); MONO # 0.8 10*3/uL (0.1-1.0); NEUT # 6.8 10*3/uL (2.3-7.9); NEUT % 70.9 % (47.0-73.0); PLATELET COUNT AUTOMATED 310 10*3/uL (130-400); RED BLOOD COUNT 2.99 10*6/uL (4.10-5.10); RED CELL DISTRI WIDTH 20.4 % (0-14.5); WHITE BLOOD COUNT 9.6 10*3/uL (4.8-10.8)
[2018-07-05 07:34] LABS: BUN 10 mg/dl (7-24); CHLORIDE 102 mmol/L (98-107); CREATININE 0.65 mg/dL (0.55-1.02); POTASSIUM 4.3 mmol/L (3.5-5.1); SODIUM 142 mmol/L (136-145)
[2018-07-05 15:52] LABS: BODY FLUID WBC 306 /uL
[2018-07-05 16:34] LABS: BF LYMPHOCYTES 34 %; BF MACROPHAGES 42 %; BF MESOTHELIALS 1 %; BF MONOCYTES 1 %; BF NEUTROPHILS 22 %
[2018-07-06] VITALS: BP 130/50
[2018-07-06 06:10] LABS: BASO # 0.1 10*3/uL (0.0-0.1); BASO % 0.8 % (0.0-1.0); EOS # 0.4 10*3/uL (0.0-0.4); EOS % 6.8 % (1.0-4.0); HEMATOCRIT 26.4 % (37.0-47.0); HEMOGLOBIN 7.7 g/dl (12.0-16.0); LYMPH # 1.6 10*3/uL (1.3-4.4); LYMPH % 27.1 % (27.0-41.0); MEAN CELL VOLUME 92.3 fl (81.0-99.0); MEAN CORPUSCULAR HGB 26.9 pg (27.0-31.0); MEAN CORPUSCULAR HGB CONC 29.2 g/dl (33.0-37.0); MEAN PLATELET VOLUME 12.5 fl (9.6-12.3); MONO # 0.5 10*3/uL (0.1-1.0); MONO % 7.8 % (3.0-9.0); NEUT # 3.4 10*3/uL (2.3-7.9); NEUT % 56.5 % (47.0-73.0); PLATELET COUNT AUTOMATED 339 10*3/uL (130-400); RED BLOOD COUNT 2.86 10*6/uL (4.10-5.10); WHITE BLOOD COUNT 6.1 10*3/uL (4.8-10.8)
[2018-07-06 06:31] LABS: BUN 10 mg/dl (7-24); CHLORIDE 104 mmol/L (98-107); CREATININE 0.65 mg/dL (0.55-1.02); POTASSIUM 3.9 mmol/L (3.5-5.1); SODIUM 142 mmol/L (136-145)
[2018-07-06 08:00] VITALS: BP 122/52
[2018-07-06 08:10] LABS: TB1 Ag VALUE 0.02 IU/mL (.)
[2018-07-06 12:00] VITALS: BP 133/43
[2018-07-06 16:00] VITALS: BP 109/46
[2018-07-06 17:08] LABS: ACID FAST SPEC PROCESSING Concentration (.)
[2018-07-06 20:00] VITALS: BP 127/52
[2018-07-07] VITALS: BP 131/51
[2018-07-07 06:05] LABS: BASO # 0.1 10*3/uL (0.0-0.1); BASO % 0.7 % (0.0-1.0); EOS # 0.6 10*3/uL (0.0-0.4); EOS % 7.9 % (1.0-4.0); HEMATOCRIT 25.7 % (37.0-47.0); HEMOGLOBIN 7.6 g/dl (12.0-16.0); LYMPH # 1.8 10*3/uL (1.3-4.4); LYMPH % 25.5 % (27.0-41.0); MEAN CELL VOLUME 92.4 fl (81.0-99.0); MEAN CORPUSCULAR HGB 27.3 pg (27.0-31.0); MEAN CORPUSCULAR HGB CONC 29.6 g/dl (33.0-37.0); MEAN PLATELET VOLUME 12.4 fl (9.6-12.3); MONO # 0.6 10*3/uL (0.1-1.0); NEUT % 56.5 % (47.0-73.0); PLATELET COUNT AUTOMATED 378 10*3/uL (130-400); RED BLOOD COUNT 2.78 10*6/uL (4.10-5.10); RED CELL DISTRI WIDTH 21.3 % (0-14.5)
[2018-07-07 08:00] VITALS: BP 109/47
[2018-07-07 12:00] VITALS: BP 127/53
[2018-07-07 16:00] VITALS: BP 116/43
[2018-07-07 20:00] VITALS: BP 122/49
[2018-07-08] VITALS (7 sets, daily range): BP systolic 104–137; BP diastolic 40–61
[2018-07-08 06:14] LABS: HEMOGLOBIN 7.9 g/dl (12.0-16.0)
[2018-07-09] VITALS: BP 107/48
[2018-07-09 07:00] LABS: HEMATOCRIT 27.2 % (37.0-47.0); HEMOGLOBIN 7.9 g/dl (12.0-16.0)
[2018-07-09 08:00] VITALS: BP 151/57
[2018-07-09 10:07] LABS: ADENOVIRUS Negative (Negative); INFLUENZA A Negative (Negative); INFLUENZA B Negative (Negative); METAPNEUMOVIRUS Negative (Negative); PARAINFLUENZA 1 Negative (Negative); PARAINFLUENZA 2 Negative (Negative); PARAINFLUENZA 3 Negative (Negative); RHINOVIRUS Negative (Negative); RSV A Negative (Negative); RSV B Negative (Negative)
[2018-07-09 12:00] VITALS: BP 126/52
[2018-07-09 15:07] LABS: ACT PARTIAL THROMBO TIME 26.3 SECONDS (20.8-31.5)
[2018-07-09 16:00] VITALS: BP 125/49
[2018-07-09 20:00] VITALS: BP 110/49
[2018-07-10] VITALS (9 sets, daily range): BP systolic 107–142; BP diastolic 47–71
[2018-07-11] VITALS (10 sets, daily range): BP systolic 84–144; BP diastolic 30–83
[2018-07-11 08:16] LABS: BASO # 0.1 10*3/uL (0.0-0.1); EOS # 0.4 10*3/uL (0.0-0.4); HEMOGLOBIN 7.9 g/dl (12.0-16.0); LYMPH # 1.6 10*3/uL (1.3-4.4); LYMPH % 27.2 % (27.0-41.0); MEAN CELL VOLUME 95.7 fl (81.0-99.0); MEAN CORPUSCULAR HGB CONC 29.3 g/dl (33.0-37.0); MONO # 0.4 10*3/uL (0.1-1.0); MONO % 7.5 % (3.0-9.0); NEUT # 3.3 10*3/uL (2.3-7.9); NEUT % 56.3 % (47.0-73.0); NUCLEATED RED BLOOD CELL 0.3 % (0.0-0.0); PLATELET COUNT AUTOMATED 353 10*3/uL (130-400); RED BLOOD COUNT 2.82 10*6/uL (4.10-5.10); RED CELL DISTRI WIDTH 22.5 % (0-14.5); WHITE BLOOD COUNT 5.9 10*3/uL (4.8-10.8)
[2018-07-11 08:34] LABS: BUN 12 mg/dl (7-24); CHLORIDE 102 mmol/L (98-107); CREATININE 0.72 mg/dL (0.55-1.02); POTASSIUM 4.2 mmol/L (3.5-5.1); SODIUM 141 mmol/L (136-145)
[2018-07-11 15:11] LABS: ACID FAST SPEC PROCESSING Concentration (.)
[2018-07-12] VITALS: BP 110/51
[2018-07-12 07:08] LABS: RETICULOCYTE % 2.8 % (0.50-2.50)
[2018-07-12 08:00] VITALS: BP 140/52
[2018-07-12 12:00] VITALS: BP 119/48
[2018-07-12] MEDS ORDERED: PANTOPRAZOLE SO40 MG PO (12:37)
[2018-07-12] MEDS ORDERED: FEROSUL325 MG PO (12:37)
[2018-08-09 15:04] LABS: ORGANISM ID, MOLD Final report (.); RESULT 1 Final Identification (.)
[2018-08-16 09:06] LABS: ACID FAST CULTURE Negative (.)
[2018-08-22 10:07] LABS: ACID FAST CULTURE Negative (.)
== END 2018-07-12 15:15 | disposition home health service (06) | DRG 177 ==
LOC: ED 15:23 → EDHOLD 18:06 → 5E 18:06
PROVIDERS: Internal Medicine; Internal Medicine Critical Care Medicine; Internal Medicine Gastroenterology; Internal Medicine Nephrology; Nurse Practitioner Family; Registered Nurse; ADMIT Internal Medicine
PROC: BD1BYZZ Fluoroscopy of Mouth/Oropharynx using Other Contrast (ICD-10-PCS; principal; 2018-07-03)
PROC: BD11YZZ Fluoroscopy of Esophagus using Other Contrast (ICD-10-PCS; principal; 2018-07-03)
PROC: 5A09357 Assistance with Respiratory Ventilation, Less than 24 Consecutive Hours, Continuous Positive Airway Pressure (ICD-10-PCS; 2018-07-04)
PROC: 30233N1 Transfusion of Nonautologous Red Blood Cells into Peripheral Vein, Percutaneous Approach (ICD-10-PCS; 2018-07-04)
PROC: 0W993ZZ Drainage of Right Pleural Cavity, Percutaneous Approach (ICD-10-PCS; 2018-07-05)
PROC: 5A09357 Assistance with Respiratory Ventilation, Less than 24 Consecutive Hours, Continuous Positive Airway Pressure (ICD-10-PCS; 2018-07-06)
PROC: 5A09357 Assistance with Respiratory Ventilation, Less than 24 Consecutive Hours, Continuous Positive Airway Pressure (ICD-10-PCS; 2018-07-07)
PROC: 5A09357 Assistance with Respiratory Ventilation, Less than 24 Consecutive Hours, Continuous Positive Airway Pressure (ICD-10-PCS; 2018-07-08)
PROC: 0BC88ZZ Extirpation of Matter from Left Upper Lobe Bronchus, Via Natural or Artificial Opening Endoscopic (ICD-10-PCS; 2018-07-10)
PROC: 0BC38ZZ Extirpation of Matter from Right Main Bronchus, Via Natural or Artificial Opening Endoscopic (ICD-10-PCS; 2018-07-10)
PROC: 0BC78ZZ Extirpation of Matter from Left Main Bronchus, Via Natural or Artificial Opening Endoscopic (ICD-10-PCS; 2018-07-10)
PROC: 0BC58ZZ Extirpation of Matter from Right Middle Lobe Bronchus, Via Natural or Artificial Opening Endoscopic (ICD-10-PCS; 2018-07-10)
PROC: 0BC28ZZ Extirpation of Matter from Carina, Via Natural or Artificial Opening Endoscopic (ICD-10-PCS; 2018-07-10)
PROC: 0BC98ZZ Extirpation of Matter from Lingula Bronchus, Via Natural or Artificial Opening Endoscopic (ICD-10-PCS; 2018-07-10)
PROC: 0BCB8ZZ Extirpation of Matter from Left Lower Lobe Bronchus, Via Natural or Artificial Opening Endoscopic (ICD-10-PCS; 2018-07-10)
PROC: 0BC18ZZ Extirpation of Matter from Trachea, Via Natural or Artificial Opening Endoscopic (ICD-10-PCS; 2018-07-10)
PROC: 0BC48ZZ Extirpation of Matter from Right Upper Lobe Bronchus, Via Natural or Artificial Opening Endoscopic (ICD-10-PCS; 2018-07-10)
PROC: 0BC68ZZ Extirpation of Matter from Right Lower Lobe Bronchus, Via Natural or Artificial Opening Endoscopic (ICD-10-PCS; 2018-07-10)
PROC: 5A09357 Assistance with Respiratory Ventilation, Less than 24 Consecutive Hours, Continuous Positive Airway Pressure (ICD-10-PCS; 2018-07-10)
PROC: 0DB68ZX Excision of Stomach, Via Natural or Artificial Opening Endoscopic, Diagnostic (ICD-10-PCS; 2018-07-11)
DX: J69.0 Pneumonitis due to inhalation of food and vomit (principal); J96.21 Acute and chronic respiratory failure with hypoxia; J96.22 Acute and chronic respiratory failure with hypercapnia; T17.590A Other foreign object in bronchus causing asphyxiation, initial encounter; J90 Pleural effusion, not elsewhere classified; E44.1 Mild protein-calorie malnutrition; T17.490A Other foreign object in trachea causing asphyxiation, initial encounter; E87.3 Alkalosis; J98.11 Atelectasis; J44.1 Chronic obstructive pulmonary disease with (acute) exacerbation; Z68.44 Body mass index [BMI] 60.0-69.9, adult; J15.6 Pneumonia due to other Gram-negative bacteria; K29.70 Gastritis, unspecified, without bleeding; F32.9 Major depressive disorder, single episode, unspecified; E03.9 Hypothyroidism, unspecified; E78.5 Hyperlipidemia, unspecified; N32.81 Overactive bladder; E55.9 Vitamin D deficiency, unspecified; D50.9 Iron deficiency anemia, unspecified; K25.9 Gastric ulcer, unspecified as acute or chronic, without hemorrhage or perforation; D72.1 Eosinophilia; I50.9 Heart failure, unspecified; I11.0 Hypertensive heart disease with heart failure; F17.210 Nicotine dependence, cigarettes, uncomplicated; X58.XXXA Exposure to other specified factors, initial encounter; Y93.89 Activity, other specified; Y92.89 Other specified places as the place of occurrence of the external cause; Y99.8 Other external cause status; Z99.81 Dependence on supplemental oxygen; Z79.82 Long term (current) use of aspirin; Z98.51 Tubal ligation status; Z98.49 Cataract extraction status, unspecified eye; Z90.710 Acquired absence of both cervix and uterus; Z80.0 Family history of malignant neoplasm of digestive organs; Z80.3 Family history of malignant neoplasm of breast; Z82.49 Family history of ischemic heart disease and other diseases of the circulatory system

== ENCOUNTER 2019-07-04 15:52 | Emergency (ER) | payer OTHER ==
[~2019-07-04] VITALS: Ht 162.5 cm; Wt 65.8 kg
[~2019-07-04 15:52] MED LIST changes: +CELEXA40 MG PO; +FEROSUL325 MG PO; +OXYBUTYNIN5 MG PO; +PANTOPRAZOLE SO40 MG PO; +SIMVASTATIN10 MG PO; +SYNTHROID,LEV112 MCG PO; +VITAMIN D22000 UNIT PO; +VITAMIN D50000 UNIT PO
[2019-07-04 15:58] VITALS: BP 138/63
[2019-07-04 16:54] LABS: HEMATOCRIT 29.4 % (37.0-47.0); HEMOGLOBIN 9.5 g/dl (12.0-16.0); MEAN CELL VOLUME 113.1 fl (81.0-99.0); MEAN CORPUSCULAR HGB 36.5 pg (27.0-31.0); MEAN CORPUSCULAR HGB CONC 32.3 g/dl (33.0-37.0); MEAN PLATELET VOLUME 11.9 fl (9.6-12.3); NUCLEATED RED BLOOD CELL 0.3 % (0.0-0.0); PLATELET COUNT AUTOMATED 370 10*3/uL (130-400); RED CELL DISTRI WIDTH 23.7 % (0-14.5); WHITE BLOOD COUNT 9.1 10*3/uL (4.8-10.8)
[2019-07-04 17:04] LABS: ACT PARTIAL THROMBO TIME 25.1 SECONDS (20.0-32.1); INTERNATIONAL NORM RATIO 0.9 (2.0-3.5)
[2019-07-04 17:08] LABS: ALBUMIN 3.2 gm/dl (3.1-4.5); ALKALINE PHOSPHATASE 72 U/L (45-117); BUN 9 mg/dl (7-24); CHLORIDE 105 mmol/L (98-107); CREATININE 0.71 mg/dL (0.55-1.02); POTASSIUM 3.8 mmol/L (3.5-5.1); SGOT/AST 9 IU/L (3-35); SGPT/ALT 12 U/L (12-78); SODIUM 140 mmol/L (136-145); TOTAL PROTEIN 6.7 gm/dL (6.4-8.2)
[2019-07-04 17:12] LABS: TOTAL CELLS COUNTED 100 #CELLS
[2019-07-04 17:13] LABS: OVALOCYTES FEW; PLATELET SUFFICIENCY NORMAL (NORMAL); TARGET CELLS FEW
[2019-07-04] MEDS ORDERED: CLINDAMYCIN HC300 MG PO (19:01)
== END 2019-07-04 19:18 | disposition home or self-care (01) ==
LOC: ED 15:52
PROVIDERS: Nurse Practitioner Family
DX: L03.116 Cellulitis of left lower limb (principal); L03.114 Cellulitis of left upper limb; R21 Rash and other nonspecific skin eruption; J44.9 Chronic obstructive pulmonary disease, unspecified; E78.5 Hyperlipidemia, unspecified; E03.9 Hypothyroidism, unspecified; K21.9 Gastro-esophageal reflux disease without esophagitis; J45.909 Unspecified asthma, uncomplicated; F32.9 Major depressive disorder, single episode, unspecified; I10 Essential (primary) hypertension; Z79.899 Other long term (current) drug therapy; Z79.2 Long term (current) use of antibiotics; Z90.710 Acquired absence of both cervix and uterus

== ENCOUNTER → 2019-07-11 | Outpatient (CLI) | payer OTHER ==
[~2019-07-11] MED LIST changes: +CLINDAMYCIN HC300 MG PO
== END | disposition home or self-care (01) ==
LOC: LAB 13:47
DX: D51.1 Vitamin B12 deficiency anemia due to selective vitamin B12 malabsorption with proteinuria (principal)

== ENCOUNTER → 2020-04-14 | Outpatient (CLI) | payer OTHER | END | disposition home or self-care (01) | LOC: CARD 04-13 10:30 | PROVIDERS: ATTEND Physician Assistant | DX: I44.39 Other atrioventricular block (principal); I49.3 Ventricular premature depolarization; J44.9 Chronic obstructive pulmonary disease, unspecified; R42 Dizziness and giddiness ==

== ENCOUNTER → 2020-08-05 | Outpatient (CLI) | payer OTHER | END | disposition home or self-care (01) | LOC: COVID19 08:58 | PROVIDERS: ATTEND Physician Assistant | DX: Z20.822 Contact with and (suspected) exposure to COVID-19 (principal); R69 Illness, unspecified ==

== ENCOUNTER 2021-11-05 05:53 | Inpatient (IN) | payer OTHER ==
[~2021-11-05] VITALS: Ht 154.9 cm; Wt 57.2 kg
[2021-11-05 06:00] VITALS: BP 160/74
[2021-11-05 06:19] LABS: HEMATOCRIT 31.9 % (37.0-47.0); MEAN CELL VOLUME 110.8 fl (81.0-99.0); MEAN CORPUSCULAR HGB 33.7 pg (27.0-31.0); MEAN CORPUSCULAR HGB CONC 30.4 g/dl (33.0-37.0); MEAN PLATELET VOLUME 11.8 fl (9.6-12.3); NUCLEATED RED BLOOD CELL 0.1 % (0.0-0.0); PLATELET COUNT AUTOMATED 380 10*3/uL (130-400); RED BLOOD COUNT 2.88 10*6/uL (4.10-5.10); RED CELL DISTRI WIDTH 26.5 % (0-14.5); WHITE BLOOD COUNT 14.1 10*3/uL (4.8-10.8)
[2021-11-05 06:26] LABS: ALKALINE PHOSPHATASE 84 U/L (45-117); BUN 9 mg/dl (7-24); CHLORIDE 111 mmol/L (98-107); POTASSIUM 3.3 mmol/L (3.5-5.1); SGOT/AST 15 IU/L (3-35); SGPT/ALT 21 U/L (12-78); SODIUM 147 mmol/L (136-145); TOTAL PROTEIN 6.6 gm/dL (6.4-8.2)
[2021-11-05 06:32] LABS: MANUAL DIFF REFLEX YES
[2021-11-05 06:35] VITALS: BP 148/61
[2021-11-05 07:19] VITALS: BP 139/57
[2021-11-05 07:28] VITALS: BP 139/57
[2021-11-05 07:28] LABS: PLATELET SUFFICIENCY NORMAL (NORMAL); TOTAL CELLS COUNTED 100 #CELLS
[2021-11-05 11:36] LABS: ABG BASE EXCESS 5.5 mmol/L (-2.0-2.0); ARTERIAL BLOOD GAS PH 7.375 (7.35-7.45); ARTERIAL BLOOD GAS PO2 52.6 (80-90)
[2021-11-05 15:00] VITALS: BP 126/56
[2021-11-05] MEDS ORDERED: VITAMIN D350 MC3 PO (18:11)
[2021-11-05] MEDS ORDERED: GOOD SENSE ACID20 MG PO (18:13)
[2021-11-05] MEDS ORDERED: DALI500T PO (18:15)
[2021-11-05 20:58] VITALS: BP 108/72
[2021-11-06] VITALS: BP 110/70
[2021-11-06 06:06] LABS: BUN 10 mg/dl (7-24); CHLORIDE 107 mmol/L (98-107); CREATININE 0.51 mg/dL (0.55-1.02); POTASSIUM 3.9 mmol/L (3.5-5.1); SODIUM 145 mmol/L (136-145)
[2021-11-06 06:10] LABS: HEMATOCRIT 28.8 % (37.0-47.0); MEAN CELL VOLUME 109.5 fl (81.0-99.0); MEAN CORPUSCULAR HGB 33.1 pg (27.0-31.0); MEAN CORPUSCULAR HGB CONC 30.2 g/dl (33.0-37.0); MEAN PLATELET VOLUME 12.5 fl (9.6-12.3); PLATELET COUNT AUTOMATED 330 10*3/uL (130-400); RED BLOOD COUNT 2.63 10*6/uL (4.10-5.10); RED CELL DISTRI WIDTH 26.7 % (0-14.5); WHITE BLOOD COUNT 7.2 10*3/uL (4.8-10.8)
[2021-11-06 06:15] LABS: MANUAL DIFF REFLEX YES
[2021-11-06 07:02] LABS: BASOPHILS 1 % (0-1); PLATELET SUFFICIENCY NORMAL (NORMAL); TOTAL CELLS COUNTED 100 #CELLS
[2021-11-06 07:03] LABS: SCHISTOCYTES FEW
[2021-11-06 08:00] VITALS: BP 168/60
[2021-11-06 12:00] VITALS: BP 109/65
[2021-11-06 14:52] LABS: ABG BASE EXCESS 9.7 mmol/L (-2.0-2.0); ARTERIAL BLOOD GAS PH 7.373 (7.35-7.45)
[2021-11-06 16:00] VITALS: BP 125/50
[2021-11-06 18:42] LABS: BILIRUBIN Negative (Negative); BLOOD Negative (Negative); CLARITY Clear (Clear); COLOR Yellow (Yellow); GLUCOSE Negative (Negative); KETONE Negative (Negative); LEUKO ESTERASE Negative (Negative); NITRITE Negative (Negative); PH 6.5 (4.5-8.0); UROBILINOGEN 0.2 E.U./dl (0.0-1.0)
[2021-11-06 18:53] LABS: WBC 0-2 wbc/hpf (0-5)
[2021-11-06 20:00] VITALS: BP 134/51
[2021-11-07] VITALS: BP 122/47
[2021-11-07 05:41] LABS: BUN 18 mg/dl (7-24); CHLORIDE 103 mmol/L (98-107); CREATININE 0.62 mg/dL (0.55-1.02); POTASSIUM 4.6 mmol/L (3.5-5.1); SODIUM 141 mmol/L (136-145)
[2021-11-07 06:34] LABS: HEMATOCRIT 28.2 % (37.0-47.0); MEAN CELL VOLUME 107.2 fl (81.0-99.0); MEAN CORPUSCULAR HGB 32.7 pg (27.0-31.0); MEAN CORPUSCULAR HGB CONC 30.5 g/dl (33.0-37.0); MEAN PLATELET VOLUME 12.5 fl (9.6-12.3); PLATELET COUNT AUTOMATED 330 10*3/uL (130-400); RED BLOOD COUNT 2.63 10*6/uL (4.10-5.10); RED CELL DISTRI WIDTH 27.4 % (0-14.5); WHITE BLOOD COUNT 6.4 10*3/uL (4.8-10.8)
[2021-11-07 06:45] LABS: MANUAL DIFF REFLEX YES
[2021-11-07 07:29] LABS: ABG BASE EXCESS 10.6 mmol/L (-2.0-2.0); ARTERIAL BLOOD GAS PH 7.383 (7.35-7.45); ARTERIAL BLOOD GAS PO2 144.5 (80-90)
[2021-11-07 07:39] LABS: BASOPHILS 1 % (0-1); PLATELET SUFFICIENCY NORMAL (NORMAL); SCHISTOCYTES FEW; TARGET CELLS FEW; TOTAL CELLS COUNTED 100 #CELLS
[2021-11-07 07:40] LABS: OVALOCYTES FEW; POLYCHROMASIA SLIGHT
[2021-11-07 08:00] VITALS: BP 134/51
[2021-11-07 12:00] VITALS: BP 145/59
[2021-11-07 16:00] VITALS: BP 129/66
[2021-11-07 20:00] VITALS: BP 123/54
[2021-11-08] VITALS: BP 128/51
[2021-11-08 04:54] LABS: BUN 23 mg/dl (7-24); CHLORIDE 102 mmol/L (98-107); CREATININE 1.06 mg/dL (0.55-1.02); POTASSIUM 4.6 mmol/L (3.5-5.1); SODIUM 140 mmol/L (136-145)
[2021-11-08 06:07] LABS: HEMATOCRIT 28.9 % (37.0-47.0); MEAN CELL VOLUME 106.6 fl (81.0-99.0); MEAN CORPUSCULAR HGB 32.5 pg (27.0-31.0); MEAN CORPUSCULAR HGB CONC 30.4 g/dl (33.0-37.0); MEAN PLATELET VOLUME 12.2 fl (9.6-12.3); NUCLEATED RED BLOOD CELL 0.3 % (0.0-0.0); PLATELET COUNT AUTOMATED 365 10*3/uL (130-400); RED BLOOD COUNT 2.71 10*6/uL (4.10-5.10); RED CELL DISTRI WIDTH 27.7 % (0-14.5); WHITE BLOOD COUNT 6.7 10*3/uL (4.8-10.8)
[2021-11-08 06:21] LABS: MANUAL DIFF REFLEX YES
[2021-11-08 07:12] LABS: TOTAL CELLS COUNTED 100 #CELLS
[2021-11-08 07:13] LABS: OVALOCYTES FEW; PLATELET SUFFICIENCY NORMAL (NORMAL); POLYCHROMASIA SLIGHT; ROULEAUX SLIGHT; SCHISTOCYTES FEW; TARGET CELLS FEW
[2021-11-08 08:00] VITALS: BP 133/77
[2021-11-08 12:00] VITALS: BP 131/60
[2021-11-08 16:00] VITALS: BP 142/55
[2021-11-08 20:00] VITALS: BP 169/82
[2021-11-09] VITALS: BP 124/89
[2021-11-09 06:18] LABS: BUN 25 mg/dl (7-24); CHLORIDE 101 mmol/L (98-107); CREATININE 0.65 mg/dL (0.55-1.02); POTASSIUM 4.6 mmol/L (3.5-5.1); SODIUM 142 mmol/L (136-145)
[2021-11-09 06:34] LABS: BASO % 0.6 % (0.0-1.0); LYMPH # 0.5 10*3/uL (1.3-4.4); LYMPH % 7.1 % (27.0-41.0); MEAN CELL VOLUME 105.8 fl (81.0-99.0); MEAN CORPUSCULAR HGB 32.1 pg (27.0-31.0); MEAN CORPUSCULAR HGB CONC 30.3 g/dl (33.0-37.0); MEAN PLATELET VOLUME 11.9 fl (9.6-12.3); MONO # 0.2 10*3/uL (0.1-1.0); MONO % 2.7 % (3.0-9.0); NEUT % 89.2 % (47.0-73.0); PLATELET COUNT AUTOMATED 402 10*3/uL (130-400); RED BLOOD COUNT 2.93 10*6/uL (4.10-5.10); RED CELL DISTRI WIDTH 27.5 % (0-14.5); WHITE BLOOD COUNT 6.7 10*3/uL (4.8-10.8)
[2021-11-09 08:00] VITALS: BP 146/69
[2021-11-09 08:16] LABS: ABG BASE EXCESS 9.2 mmol/L (-2.0-2.0); ARTERIAL BLOOD GAS PH 7.392 (7.35-7.45); ARTERIAL BLOOD GAS PO2 58.4 (80-90)
[2021-11-09 12:00] VITALS: BP 141/65
[2021-11-09 16:00] VITALS: BP 129/38
[2021-11-09 20:00] VITALS: BP 125/51
[2021-11-10] VITALS: BP 142/46
[2021-11-10 06:09] LABS: BUN 20 mg/dl (7-24); CHLORIDE 103 mmol/L (98-107); CREATININE 0.54 mg/dL (0.55-1.02); POTASSIUM 5.3 mmol/L (3.5-5.1); SODIUM 143 mmol/L (136-145)
[2021-11-10 06:24] LABS: BASO % 0.5 % (0.0-1.0); HEMATOCRIT 30.9 % (37.0-47.0); LYMPH # 0.4 10*3/uL (1.3-4.4); LYMPH % 10.4 % (27.0-41.0); MEAN CELL VOLUME 105.5 fl (81.0-99.0); MEAN CORPUSCULAR HGB 31.7 pg (27.0-31.0); MEAN CORPUSCULAR HGB CONC 30.1 g/dl (33.0-37.0); MEAN PLATELET VOLUME 12.4 fl (9.6-12.3); MONO # 0.2 10*3/uL (0.1-1.0); NEUT # 3.6 10*3/uL (2.3-7.9); NEUT % 84.6 % (47.0-73.0); PLATELET COUNT AUTOMATED 431 10*3/uL (130-400); RED BLOOD COUNT 2.93 10*6/uL (4.10-5.10); RED CELL DISTRI WIDTH 27.7 % (0-14.5); WHITE BLOOD COUNT 4.2 10*3/uL (4.8-10.8)
[2021-11-10 08:00] VITALS: BP 128/58
[2021-11-10 12:00] VITALS: BP 126/53
[2021-11-10] MEDS ORDERED: ENALAPRIL20 MG PO (12:05)
[2021-11-10] MEDS ORDERED: ZITHROMAX250 MG PO (14:01)
[2021-11-10] MEDS ORDERED: LASIX20 MG PO (14:01)
[2021-11-10] MEDS ORDERED: PREDNISONE10 MG PO (14:01)
== END 2021-11-10 16:20 | disposition home health service (06) | DRG 871 ==
LOC: ED 05:53 → 5E 12:42 → EDHOLD 12:42 → 5E 14:03
PROVIDERS: Emergency Medicine; Internal Medicine; Student in an Organized Health Care Education/Training Program; ADMIT Internal Medicine; ATTEND Internal Medicine
PROC: 5A0935A Assistance with Respiratory Ventilation, Less than 24 Consecutive Hours, High Flow/Velocity Cannula (ICD-10-PCS; principal; 2021-11-05)
PROC: 5A0935A Assistance with Respiratory Ventilation, Less than 24 Consecutive Hours, High Flow/Velocity Cannula (ICD-10-PCS; 2021-11-08)
PROC: 5A0935A Assistance with Respiratory Ventilation, Less than 24 Consecutive Hours, High Flow/Velocity Cannula (ICD-10-PCS; 2021-11-10)
DX: A41.9 Sepsis, unspecified organism (principal); J96.01 Acute respiratory failure with hypoxia; J96.02 Acute respiratory failure with hypercapnia; I50.33 Acute on chronic diastolic (congestive) heart failure; J18.9 Pneumonia, unspecified organism; E44.0 Moderate protein-calorie malnutrition; E87.0 Hyperosmolality and hypernatremia; J44.1 Chronic obstructive pulmonary disease with (acute) exacerbation; J44.0 Chronic obstructive pulmonary disease with (acute) lower respiratory infection; R65.20 Severe sepsis without septic shock; F32.9 Major depressive disorder, single episode, unspecified; E87.6 Hypokalemia; J45.909 Unspecified asthma, uncomplicated; E03.9 Hypothyroidism, unspecified; D53.9 Nutritional anemia, unspecified; E87.8 Other disorders of electrolyte and fluid balance, not elsewhere classified; R73.9 Hyperglycemia, unspecified; E78.2 Mixed hyperlipidemia; I11.0 Hypertensive heart disease with heart failure; F17.210 Nicotine dependence, cigarettes, uncomplicated; Z71.6 Tobacco abuse counseling; Z98.51 Tubal ligation status; Z90.710 Acquired absence of both cervix and uterus; Z98.49 Cataract extraction status, unspecified eye; Z87.891 Personal history of nicotine dependence; Z88.1 Allergy status to other antibiotic agents; Z88.8 Allergy status to other drugs, medicaments and biological substances; Z68.23 Body mass index [BMI] 23.0-23.9, adult

== ENCOUNTER 2023-06-13 16:00 | Inpatient (IN) | payer OTHER ==
[~2023-06-13] VITALS: Ht 162.6 cm; Wt 65.8 kg
[~2023-06-13 16:00] MED LIST changes: +AMOXICILLIN500 M2 PO; +ASPIRIN81 M1 PO; +ATARAX,VISTARIL10 MG PO; +DALI500T PO; +DITROPAN XL5 MG PO; +GOOD SENSE ACID20 MG PO; +HYDROCODONE-AC1 EAC1 PO; +LASIX20 MG PO; +LEVOTHYROXINE125 MCG PO; +NORVASC5 MG PO; +PEPCID20 MG PO; +PREDNISONE10 MG PO; +PROTONIX40 MG PO; +REMERON30 M1 PO; +STIMULANT LAXA1 EACH PO; +VITAMIN D350 MC3 PO; +ZITHROMAX250 MG PO; +ZOCOR10 MG PO
[2023-06-13 16:05] VITALS: BP 107/60
[2023-06-13 17:25] LABS: BASO # 0.1 10*3/uL (0.0-0.1); BASO % 0.9 % (0.0-1.0); EOS # 0.6 10*3/uL (0.0-0.4); EOS % 7.5 % (1.0-4.0); HEMATOCRIT 26.7 % (37.0-47.0); LYMPH # 0.9 10*3/uL (1.3-4.4); LYMPH % 11.1 % (27.0-41.0); MEAN CELL VOLUME 102.3 fl (81.0-99.0); MEAN CORPUSCULAR HGB 28.7 pg (27.0-31.0); MEAN CORPUSCULAR HGB CONC 28.1 g/dl (33.0-37.0); MEAN PLATELET VOLUME 11.3 fl (9.6-12.3); MONO # 0.5 10*3/uL (0.1-1.0); MONO % 5.4 % (3.0-9.0); NEUT # 6.3 10*3/uL (2.3-7.9); NEUT % 74.5 % (47.0-73.0); NUCLEATED RED BLOOD CELL 0.2 % (0.0-0.0); PLATELET COUNT AUTOMATED 469 10*3/uL (130-400); RED BLOOD COUNT 2.61 10*6/uL (4.10-5.10); RED CELL DISTRI WIDTH 22.3 % (0-14.5); WHITE BLOOD COUNT 8.5 10*3/uL (4.8-10.8)
[2023-06-13 17:35] LABS: ACT PARTIAL THROMBO TIME 24.9 SECONDS (20.0-32.1)
[2023-06-13 17:49] LABS: ALKALINE PHOSPHATASE 59 U/L (46-116); BUN 7 mg/dl (9-23); CHLORIDE 97 mmol/L (98-107); LIPASE 31 U/L (12-53); POTASSIUM 3.7 mmol/L (3.4-5.1); TOTAL PROTEIN 6.9 gm/dL (6.0-8.0)
[2023-06-13 17:50] LABS: SGPT/ALT < 7 U/L (5-49)
[2023-06-13 18:40] LABS: ABG BASE EXCESS 14.1 mmol/L (-2.0-2.0); ARTERIAL BLOOD GAS PH 7.418 (7.35-7.45)
[2023-06-13] MEDS ORDERED: methylPREDNISolone sod succ 125 MG VIAL IV ONE (18:55)
[2023-06-13 18:58] VITALS: BP 107/60
[2023-06-13 19:43] VITALS: BP 149/42
[2023-06-13] MEDS ORDERED: BISACODYL 5 MG TAB PO PRN (22:30)
[2023-06-13] MEDS ORDERED: Acetaminophen/Hydrocodone 5 MG/325 MG TABLET PO PRN (22:30)
[2023-06-13] MEDS ORDERED: ACETAMINOPHEN 325 MG TAB PO PRN (22:30)
[2023-06-13] MEDS ORDERED: TEMAZEPAM 15 MG CAP PO PRN (22:30)
[2023-06-13] MEDS ORDERED: Albuterol Sulf/Ipratropium 3 ML VIAL NEB SCH (22:40)
[2023-06-13] MEDS ORDERED: FUROSEMIDE 40 MG/4 ML VIAL IV ONE (22:40)
[2023-06-13] MEDS ORDERED: POTASSIUM CHLORIDE 20 MEQ TAB PO ONE (22:45)
[2023-06-13] MEDS ORDERED: AZITHROMYCIN 250 ML IV SCH (23:00)
[2023-06-14] VITALS (14 sets, daily range): BP systolic 98–135; BP diastolic 40–65
[2023-06-14] MEDS ORDERED: Ceftriaxone Sodium 10 ML IV SCH
[2023-06-14] MEDS ORDERED: CELEXA10 MG PO (04:27)
[2023-06-14] MEDS ORDERED: Pantoprazole Sodium 40 MG TAB PO SCH (06:00)
[2023-06-14] MEDS ORDERED: Levothyroxine Sodium 125 MCG TAB PO SCH (06:00)
[2023-06-14 06:32] LABS: HEMATOCRIT 25.1 % (37.0-47.0); MEAN CORPUSCULAR HGB 28.9 pg (27.0-31.0); MEAN CORPUSCULAR HGB CONC 28.3 g/dl (33.0-37.0); MEAN PLATELET VOLUME 11.3 fl (9.6-12.3); NUCLEATED RED BLOOD CELL 0.4 % (0.0-0.0); PLATELET COUNT AUTOMATED 455 10*3/uL (130-400); RED BLOOD COUNT 2.46 10*6/uL (4.10-5.10); WHITE BLOOD COUNT 5.3 10*3/uL (4.8-10.8)
[2023-06-14 06:33] LABS: MANUAL DIFF REFLEX YES
[2023-06-14 06:44] LABS: BUN 10 mg/dl (9-23); CHLORIDE 99 mmol/L (98-107); CHOLESTEROL 142 mg/dL (<200); FREE T4 0.88 ng/dl (0.89-1.76); LDL CHOLESTEROL 83 mg/dL (9-159); POTASSIUM 4.5 mmol/L (3.4-5.1); TRIGLYCERIDES 53 mg/dl (<150)
[2023-06-14 07:12] LABS: VITAMIN D, 25-HYDROXY 61.1 ng/mL (30-100)
[2023-06-14 07:31] LABS: BASOPHILS 1 % (0-1); OVALOCYTES FEW; PLATELET SUFFICIENCY HIGH (NORMAL); POLYCHROMASIA SLIGHT; TARGET CELLS FEW; TOTAL CELLS COUNTED 100 #CELLS
[2023-06-14] MEDS ORDERED: SODIUM CHLORIDE 0.9% 500 ML IV ONE (08:12)
[2023-06-14] MEDS ORDERED: ASPIRIN ENTERIC COATED 81 MG TAB PO SCH (10:00)
[2023-06-14] MEDS ORDERED: methylPREDNISolone sod succ 40 MG VIAL IV SCH (10:00)
[2023-06-14] MEDS ORDERED: CITALOPRAM 20 MG TAB PO SCH (10:00)
[2023-06-14] MEDS ORDERED: Enoxaparin Sodium 40 MG/0.4 ML SYR SC SCH (10:00)
[2023-06-14] MEDS ORDERED: FUROSEMIDE 40 MG/4 ML VIAL IV SCH (10:00)
[2023-06-14] MEDS ORDERED: Oxybutynin Chloride 5 MG TAB PO SCH (10:00)
[2023-06-14] MEDS ORDERED: OXYBUTYNIN XL 5 MG TAB PO SCH (10:00)
[2023-06-14] MEDS ORDERED: LISINOPRIL 40 MG TAB PO SCH (10:00)
[2023-06-14] MEDS ORDERED: HYDROCODONE-AC1 EAC2 PO (15:33)
[2023-06-14] MEDS ORDERED: BUMETANIDE1 MG PO (15:36)
[2023-06-14] MEDS ORDERED: COREG3.125 MG PO (15:36)
[2023-06-14] MEDS ORDERED: TYLENOL EXTRA500 MG PO (15:36)
[2023-06-14] MEDS ORDERED: FISH OIL 1,2001 EACH PO (15:37)
[2023-06-14] MEDS ORDERED: VITAMIN D350 MC2 GT (15:38)
[2023-06-14] MEDS ORDERED: Acetaminophen/Hydrocodone ES 7.5/325 tablet PO PRN (16:40)
[2023-06-14 18:55] LABS: HEMATOCRIT 28.6 % (37.0-47.0); MEAN CELL VOLUME 99.3 fl (81.0-99.0); MEAN CORPUSCULAR HGB 29.5 pg (27.0-31.0); MEAN CORPUSCULAR HGB CONC 29.7 g/dl (33.0-37.0); MEAN PLATELET VOLUME 11.7 fl (9.6-12.3); NUCLEATED RED BLOOD CELL 0.5 % (0.0-0.0); PLATELET COUNT AUTOMATED 464 10*3/uL (130-400); RED BLOOD COUNT 2.88 10*6/uL (4.10-5.10); WHITE BLOOD COUNT 8.6 10*3/uL (4.8-10.8)
[2023-06-14 18:57] LABS: MANUAL DIFF REFLEX YES
[2023-06-14 19:22] LABS: PLATELET SUFFICIENCY HIGH (NORMAL); POLYCHROMASIA SLIGHT; TARGET CELLS FEW; TOTAL CELLS COUNTED 100 #CELLS
[2023-06-14 19:23] LABS: OVALOCYTES FEW
[2023-06-14] MEDS ORDERED: Mirtazapine 15 MG TAB PO SCH (22:00)
[2023-06-14] MEDS ORDERED: CARVEDILOL 3.125 MG TAB PO SCH (22:00)
[2023-06-14] MEDS ORDERED: SIMVASTATIN 20 MG TAB PO SCH (22:00)
[2023-06-15] VITALS: BP 108/50
[2023-06-15 05:11] LABS: BUN 19 mg/dl (9-23); CHLORIDE 97 mmol/L (98-107); POTASSIUM 4.3 mmol/L (3.4-5.1)
[2023-06-15 06:04] LABS: BASO % 0.5 % (0.0-1.0); HEMATOCRIT 26.3 % (37.0-47.0); LYMPH # 0.7 10*3/uL (1.3-4.4); LYMPH % 9.3 % (27.0-41.0); MEAN CELL VOLUME 99.6 fl (81.0-99.0); MEAN CORPUSCULAR HGB 29.9 pg (27.0-31.0); MEAN PLATELET VOLUME 11.4 fl (9.6-12.3); MONO # 0.4 10*3/uL (0.1-1.0); MONO % 5.1 % (3.0-9.0); NEUT # 6.4 10*3/uL (2.3-7.9); NEUT % 84.4 % (47.0-73.0); NUCLEATED RED BLOOD CELL 0.3 % (0.0-0.0); PLATELET COUNT AUTOMATED 408 10*3/uL (130-400); RED BLOOD COUNT 2.64 10*6/uL (4.10-5.10); RED CELL DISTRI WIDTH 20.3 % (0-14.5); WHITE BLOOD COUNT 7.6 10*3/uL (4.8-10.8)
[2023-06-15 08:00] VITALS: BP 114/52
[2023-06-15] MEDS ORDERED: Water, Sterile 10 ML VIAL IV SCH (11:15)
[2023-06-15] MEDS ORDERED: ACETAZOLAMIDE SODIUM 500 MG IV SCH (11:15)
[2023-06-15 12:00] VITALS: BP 117/53
[2023-06-15 16:00] VITALS: BP 122/80
[2023-06-15 20:00] VITALS: BP 102/54
[2023-06-16] VITALS: BP 110/50
[2023-06-16 06:23] LABS: BUN 22 mg/dl (9-23); CHLORIDE 100 mmol/L (98-107); POTASSIUM 4.2 mmol/L (3.4-5.1)
[2023-06-16 06:42] LABS: BASO % 0.3 % (0.0-1.0); EOS % 0.1 % (1.0-4.0); HEMATOCRIT 31.4 % (37.0-47.0); LYMPH # 0.8 10*3/uL (1.3-4.4); MEAN CORPUSCULAR HGB 29.7 pg (27.0-31.0); MEAN CORPUSCULAR HGB CONC 28.7 g/dl (33.0-37.0); MEAN PLATELET VOLUME 11.9 fl (9.6-12.3); MONO # 0.5 10*3/uL (0.1-1.0); MONO % 5.1 % (3.0-9.0); NEUT # 7.4 10*3/uL (2.3-7.9); NEUT % 84.8 % (47.0-73.0); NUCLEATED RED BLOOD CELL 0.2 % (0.0-0.0); PLATELET COUNT AUTOMATED 519 10*3/uL (130-400); RED BLOOD COUNT 3.03 10*6/uL (4.10-5.10); RED CELL DISTRI WIDTH 20.7 % (0-14.5); WHITE BLOOD COUNT 8.8 10*3/uL (4.8-10.8)
[2023-06-16 06:45] LABS: MEAN CELL VOLUME 103.6 fl (81.0-99.0)
[2023-06-16 08:00] VITALS: BP 112/53
[2023-06-16 12:00] VITALS: BP 96/42
[2023-06-16 16:00] VITALS: BP 98/40
[2023-06-16 20:00] VITALS: BP 119/49
[2023-06-17] VITALS: BP 120/43
[2023-06-17 06:59] LABS: BASO # 0.1 10*3/uL (0.0-0.1); BASO % 0.9 % (0.0-1.0); EOS # 0.1 10*3/uL (0.0-0.4); EOS % 1.6 % (1.0-4.0); HEMATOCRIT 28.5 % (37.0-47.0); LYMPH # 1.5 10*3/uL (1.3-4.4); LYMPH % 22.7 % (27.0-41.0); MEAN CELL VOLUME 101.4 fl (81.0-99.0); MEAN CORPUSCULAR HGB 29.5 pg (27.0-31.0); MEAN CORPUSCULAR HGB CONC 29.1 g/dl (33.0-37.0); MEAN PLATELET VOLUME 11.1 fl (9.6-12.3); MONO # 0.6 10*3/uL (0.1-1.0); NEUT # 4.2 10*3/uL (2.3-7.9); NEUT % 64.9 % (47.0-73.0); NUCLEATED RED BLOOD CELL 0.3 % (0.0-0.0); PLATELET COUNT AUTOMATED 456 10*3/uL (130-400); RED BLOOD COUNT 2.81 10*6/uL (4.10-5.10); RED CELL DISTRI WIDTH 20.1 % (0-14.5); WHITE BLOOD COUNT 6.4 10*3/uL (4.8-10.8)
[2023-06-17 07:16] LABS: BUN 24 mg/dl (9-23); CHLORIDE 104 mmol/L (98-107); POTASSIUM 3.8 mmol/L (3.4-5.1)
[2023-06-17 08:00] VITALS: BP 108/36
[2023-06-17] MEDS ORDERED: methylPREDNISolone sod succ 40 MG VIAL IV SCH (10:00)
[2023-06-17 12:00] VITALS: BP 122/43
[2023-06-17 16:00] VITALS: BP 111/44
[2023-06-17 20:00] VITALS: BP 107/52
[2023-06-18] VITALS: BP 110/54
[2023-06-18 07:43] LABS: BASO # 0.1 10*3/uL (0.0-0.1); EOS # 0.3 10*3/uL (0.0-0.4); EOS % 4.4 % (1.0-4.0); HEMATOCRIT 27.1 % (37.0-47.0); LYMPH # 1.3 10*3/uL (1.3-4.4); LYMPH % 21.6 % (27.0-41.0); MEAN CELL VOLUME 102.7 fl (81.0-99.0); MEAN CORPUSCULAR HGB 28.8 pg (27.0-31.0); MEAN PLATELET VOLUME 11.1 fl (9.6-12.3); MONO # 0.5 10*3/uL (0.1-1.0); MONO % 7.7 % (3.0-9.0); NEUT # 3.9 10*3/uL (2.3-7.9); NEUT % 64.5 % (47.0-73.0); NUCLEATED RED BLOOD CELL 0.3 % (0.0-0.0); PLATELET COUNT AUTOMATED 443 10*3/uL (130-400); RED BLOOD COUNT 2.64 10*6/uL (4.10-5.10); RED CELL DISTRI WIDTH 20.8 % (0-14.5)
[2023-06-18 08:00] VITALS: BP 115/49
[2023-06-18 08:07] LABS: BUN 18 mg/dl (9-23); CHLORIDE 106 mmol/L (98-107)
[2023-06-18 12:00] VITALS: BP 110/38
[2023-06-18 16:00] VITALS: BP 90/59
[2023-06-18 20:00] VITALS: BP 110/46
[2023-06-19] VITALS: BP 118/52
[2023-06-19 06:20] LABS: BASO # 0.1 10*3/uL (0.0-0.1); BASO % 0.9 % (0.0-1.0); EOS # 0.6 10*3/uL (0.0-0.4); EOS % 7.8 % (1.0-4.0); HEMATOCRIT 29.7 % (37.0-47.0); LYMPH # 1.7 10*3/uL (1.3-4.4); LYMPH % 22.5 % (27.0-41.0); MEAN CELL VOLUME 102.8 fl (81.0-99.0); MEAN CORPUSCULAR HGB 29.4 pg (27.0-31.0); MEAN CORPUSCULAR HGB CONC 28.6 g/dl (33.0-37.0); MEAN PLATELET VOLUME 10.7 fl (9.6-12.3); MONO # 0.6 10*3/uL (0.1-1.0); MONO % 7.4 % (3.0-9.0); NEUT # 4.6 10*3/uL (2.3-7.9); NEUT % 60.6 % (47.0-73.0); PLATELET COUNT AUTOMATED 441 10*3/uL (130-400); RED BLOOD COUNT 2.89 10*6/uL (4.10-5.10); RED CELL DISTRI WIDTH 20.3 % (0-14.5); WHITE BLOOD COUNT 7.5 10*3/uL (4.8-10.8)
[2023-06-19 06:42] LABS: BUN 24 mg/dl (9-23); CHLORIDE 101 mmol/L (98-107); POTASSIUM 4.6 mmol/L (3.4-5.1)
[2023-06-19 08:00] VITALS: BP 123/56
[2023-06-19 12:00] VITALS: BP 111/47
[2023-06-19 16:00] VITALS: BP 100/44
[2023-06-19 20:00] VITALS: BP 92/50
[2023-06-19 22:09] VITALS: BP 92/50
[2023-06-20] VITALS: BP 103/45
[2023-06-20 07:00] LABS: HEMATOCRIT 26.5 % (37.0-47.0); MEAN CORPUSCULAR HGB 28.7 pg (27.0-31.0); MEAN CORPUSCULAR HGB CONC 28.7 g/dl (33.0-37.0); MEAN PLATELET VOLUME 11.5 fl (9.6-12.3); PLATELET COUNT AUTOMATED 400 10*3/uL (130-400); RED BLOOD COUNT 2.65 10*6/uL (4.10-5.10); RED CELL DISTRI WIDTH 20.9 % (0-14.5); WHITE BLOOD COUNT 6.8 10*3/uL (4.8-10.8)
[2023-06-20 07:07] LABS: BUN 24 mg/dl (9-23); CHLORIDE 102 mmol/L (98-107); MANUAL DIFF REFLEX YES; POTASSIUM 4.3 mmol/L (3.4-5.1)
[2023-06-20 07:52] VITALS: BP 98/46
[2023-06-20 08:08] LABS: BASOPHILS 1 % (0-1); OVALOCYTES FEW; POLYCHROMASIA SLIGHT; STOMATOCYTE FEW; TARGET CELLS FEW; TOTAL CELLS COUNTED 100 #CELLS
[2023-06-20 08:09] LABS: PLATELET SUFFICIENCY NORMAL (NORMAL); SCHISTOCYTES FEW
[2023-06-20] MEDS ORDERED: Doxycycline Hyclate 100 MG CAP PO SCH (10:00)
[2023-06-20] MEDS ORDERED: Cefepime Hydrochloride 2 GM,IV 1 EA in SODIUM CHLORIDE 0.9% 50 ML IV SCH (10:00)
[2023-06-20] MEDS ORDERED: GUAIFENESIN 600 MG TAB ER PO SCH (10:00)
[2023-06-20 12:05] VITALS: BP 98/46
[2023-06-20 16:00] VITALS: BP 101/45
[2023-06-20 20:40] VITALS: BP 100/43
[2023-06-21] VITALS (8 sets, daily range): BP systolic 72–135; BP diastolic 40–64
[2023-06-21 05:32] LABS: BUN 26 mg/dl (9-23); CHLORIDE 102 mmol/L (98-107); POTASSIUM 4.5 mmol/L (3.4-5.1)
[2023-06-21 06:06] LABS: BASO % 0.5 % (0.0-1.0); EOS # 0.2 10*3/uL (0.0-0.4); EOS % 2.7 % (1.0-4.0); HEMATOCRIT 27.6 % (37.0-47.0); LYMPH # 1.1 10*3/uL (1.3-4.4); LYMPH % 13.2 % (27.0-41.0); MEAN CELL VOLUME 99.3 fl (81.0-99.0); MEAN CORPUSCULAR HGB 29.5 pg (27.0-31.0); MEAN CORPUSCULAR HGB CONC 29.7 g/dl (33.0-37.0); MEAN PLATELET VOLUME 12.3 fl (9.6-12.3); MONO # 0.5 10*3/uL (0.1-1.0); MONO % 5.7 % (3.0-9.0); NEUT # 6.4 10*3/uL (2.3-7.9); NEUT % 77.2 % (47.0-73.0); PLATELET COUNT AUTOMATED 417 10*3/uL (130-400); RED BLOOD COUNT 2.78 10*6/uL (4.10-5.10); RED CELL DISTRI WIDTH 20.8 % (0-14.5); WHITE BLOOD COUNT 8.2 10*3/uL (4.8-10.8)
[2023-06-21] MEDS ORDERED: Acetaminophen/Hydrocodone ES 7.5/325 tablet PO PRN (20:45)
[2023-06-22] VITALS (12 sets, daily range): BP systolic 72–111; BP diastolic 39–72
[2023-06-22 08:30] LABS: HEMATOCRIT 30.7 % (37.0-47.0); MEAN CORPUSCULAR HGB 29.3 pg (27.0-31.0); MEAN CORPUSCULAR HGB CONC 29.3 g/dl (33.0-37.0); PLATELET COUNT AUTOMATED 471 10*3/uL (130-400); RED BLOOD COUNT 3.07 10*6/uL (4.10-5.10); RED CELL DISTRI WIDTH 21.6 % (0-14.5); WHITE BLOOD COUNT 9.2 10*3/uL (4.8-10.8)
[2023-06-22 08:32] LABS: MANUAL DIFF REFLEX YES
[2023-06-22 08:45] LABS: BUN 26 mg/dl (9-23); CHLORIDE 102 mmol/L (98-107)
[2023-06-22 08:51] LABS: BASOPHILS 2 % (0-1); POLYCHROMASIA SLIGHT; TARGET CELLS FEW; TOTAL CELLS COUNTED 100 #CELLS
[2023-06-22 08:52] LABS: OVALOCYTES FEW; PLATELET SUFFICIENCY HIGH (NORMAL); SCHISTOCYTES FEW; TOXIC GRANULATION SLIGHT
[2023-06-23] VITALS (9 sets, daily range): BP systolic 93–133; BP diastolic 36–86
[2023-06-23] MEDS ORDERED: Lidocaine Hydrochloride 4% 5 ML AMP NEB ONE (06:45)
[2023-06-23] MEDS ORDERED: Albuterol Sulfate 2.5 MG/0.5 ML VIAL NEB ONE ×2 (06:45→06:54)
[2023-06-23] MEDS ORDERED: Lidocaine Hydrochloride 4% 5 ML AMP ONE ×2 (06:53→06:54)
[2023-06-23] MEDS ORDERED: SODIUM CHLORIDE 0.9% 1,000 ML IV ONE (07:05)
[2023-06-23] MEDS ORDERED: Albuterol Sulf/Ipratropium 3 ML VIAL NEB ONE ×2 (07:30→07:46)
[2023-06-23] MEDS ORDERED: PROPOFOL 200 MG/20 ML VIAL IV ONE (19:25)
[2023-06-24] VITALS: BP 110/38
[2023-06-24 08:00] VITALS: BP 127/47
[2023-06-24] MEDS ORDERED: FUROSEMIDE 40 MG TAB PO SCH (10:00)
[2023-06-24] MEDS ORDERED: LISINOPRIL 20 MG TAB PO SCH (10:00)
[2023-06-24 10:07] LABS: ACID FAST SPEC PROCESSING Concentration (.)
[2023-06-24 11:31] LABS: BASO # 0.1 10*3/uL (0.0-0.1); BASO % 0.6 % (0.0-1.0); EOS # 0.5 10*3/uL (0.0-0.4); EOS % 5.2 % (1.0-4.0); HEMATOCRIT 30.3 % (37.0-47.0); LYMPH # 1.3 10*3/uL (1.3-4.4); LYMPH % 12.8 % (27.0-41.0); MEAN CELL VOLUME 104.5 fl (81.0-99.0); MEAN CORPUSCULAR HGB 29.3 pg (27.0-31.0); MEAN CORPUSCULAR HGB CONC 28.1 g/dl (33.0-37.0); MEAN PLATELET VOLUME 10.8 fl (9.6-12.3); MONO # 0.5 10*3/uL (0.1-1.0); MONO % 4.8 % (3.0-9.0); NEUT # 7.6 10*3/uL (2.3-7.9); NEUT % 75.8 % (47.0-73.0); PLATELET COUNT AUTOMATED 499 10*3/uL (130-400); RED CELL DISTRI WIDTH 21.3 % (0-14.5); WHITE BLOOD COUNT 10.1 10*3/uL (4.8-10.8)
[2023-06-24 11:54] LABS: ALKALINE PHOSPHATASE 47 U/L (46-116); BUN 27 mg/dl (9-23); CHLORIDE 105 mmol/L (98-107); POTASSIUM 5.2 mmol/L (3.4-5.1); SGPT/ALT 21 U/L (5-49); TOTAL PROTEIN 6.6 gm/dL (6.0-8.0)
[2023-06-24 12:00] VITALS: BP 114/50
[2023-06-24 16:00] VITALS: BP 118/48
[2023-06-24 20:00] VITALS: BP 122/47
[2023-06-25] VITALS (8 sets, daily range): BP systolic 90–149; BP diastolic 27–53
[2023-06-25] MEDS ORDERED: DOXYCYCLINE MO100 MG PO (15:01)
[2023-06-25] MEDS ORDERED: MUCUS RELIEF600 MG PO (15:01)
[2023-06-25] MEDS ORDERED: SOLU-MEDRO40 MG/1 ML IV (15:01)
[2023-06-25] MEDS ORDERED: FUROSEMIDE40 MG PO (15:01)
[2023-06-25] MEDS ORDERED: LISINOPRIL20 MG PO (15:01)
[2023-06-26] VITALS: BP 118/44
[2023-06-26 08:00] VITALS: BP 116/66
[2023-06-26 12:00] VITALS: BP 116/78
[2023-06-26 16:00] VITALS: BP 110/46
[2023-06-26 20:00] VITALS: BP 93/48
[2023-06-27] VITALS: BP 138/48
[2023-06-27 09:25] VITALS: BP 118/36
[2023-06-27 11:22] VITALS: BP 116/38
[2023-06-27 16:00] VITALS: BP 138/38
[2023-06-28] MEDS ORDERED: predniSONE 10 MG TAB PO SCH (10:00)
== END 2023-06-27 20:20 | disposition short-term general hospital (02) | DRG 177 ==
LOC: ED 16:00 → 5E 18:53 → EDHOLD 18:53 → 5E 06-14 13:32
PROVIDERS: Emergency Medicine; Family Medicine; Internal Medicine; Internal Medicine Critical Care Medicine; Registered Nurse; Student in an Organized Health Care Education/Training Program; ADMIT Internal Medicine; ATTEND Internal Medicine
PROC: 30233N1 Transfusion of Nonautologous Red Blood Cells into Peripheral Vein, Percutaneous Approach (ICD-10-PCS; 2023-06-14)
PROC: 5A0935A Assistance with Respiratory Ventilation, Less than 24 Consecutive Hours, High Flow/Velocity Cannula (ICD-10-PCS; 2023-06-14)
PROC: 5A0935A Assistance with Respiratory Ventilation, Less than 24 Consecutive Hours, High Flow/Velocity Cannula (ICD-10-PCS; 2023-06-18)
PROC: 5A0935A Assistance with Respiratory Ventilation, Less than 24 Consecutive Hours, High Flow/Velocity Cannula (ICD-10-PCS; 2023-06-19)
PROC: 5A0935A Assistance with Respiratory Ventilation, Less than 24 Consecutive Hours, High Flow/Velocity Cannula (ICD-10-PCS; 2023-06-20)
PROC: 5A0935A Assistance with Respiratory Ventilation, Less than 24 Consecutive Hours, High Flow/Velocity Cannula (ICD-10-PCS; 2023-06-21)
PROC: 0BC18ZZ Extirpation of Matter from Trachea, Via Natural or Artificial Opening Endoscopic (ICD-10-PCS; principal; 2023-06-23)
PROC: 0BC98ZZ Extirpation of Matter from Lingula Bronchus, Via Natural or Artificial Opening Endoscopic (ICD-10-PCS; 2023-06-23)
PROC: 0BC48ZZ Extirpation of Matter from Right Upper Lobe Bronchus, Via Natural or Artificial Opening Endoscopic (ICD-10-PCS; 2023-06-23)
PROC: 0BC88ZZ Extirpation of Matter from Left Upper Lobe Bronchus, Via Natural or Artificial Opening Endoscopic (ICD-10-PCS; 2023-06-23)
PROC: 0BC58ZZ Extirpation of Matter from Right Middle Lobe Bronchus, Via Natural or Artificial Opening Endoscopic (ICD-10-PCS; 2023-06-23)
PROC: 0BC38ZZ Extirpation of Matter from Right Main Bronchus, Via Natural or Artificial Opening Endoscopic (ICD-10-PCS; 2023-06-23)
PROC: 0BC78ZZ Extirpation of Matter from Left Main Bronchus, Via Natural or Artificial Opening Endoscopic (ICD-10-PCS; 2023-06-23)
PROC: 0BC68ZZ Extirpation of Matter from Right Lower Lobe Bronchus, Via Natural or Artificial Opening Endoscopic (ICD-10-PCS; 2023-06-23)
PROC: 0BCB8ZZ Extirpation of Matter from Left Lower Lobe Bronchus, Via Natural or Artificial Opening Endoscopic (ICD-10-PCS; 2023-06-23)
PROC: 5A0935A Assistance with Respiratory Ventilation, Less than 24 Consecutive Hours, High Flow/Velocity Cannula (ICD-10-PCS; 2023-06-23)
PROC: 5A0935A Assistance with Respiratory Ventilation, Less than 24 Consecutive Hours, High Flow/Velocity Cannula (ICD-10-PCS; 2023-06-26)
PROC: 5A0935A Assistance with Respiratory Ventilation, Less than 24 Consecutive Hours, High Flow/Velocity Cannula (ICD-10-PCS; 2023-06-27)
DX: J15.69 Pneumonia due to other Gram-negative bacteria (principal); I50.33 Acute on chronic diastolic (congestive) heart failure; J96.21 Acute and chronic respiratory failure with hypoxia; J96.22 Acute and chronic respiratory failure with hypercapnia; E87.4 Mixed disorder of acid-base balance; J98.11 Atelectasis; T17.590A Other foreign object in bronchus causing asphyxiation, initial encounter; J44.1 Chronic obstructive pulmonary disease with (acute) exacerbation; J44.0 Chronic obstructive pulmonary disease with (acute) lower respiratory infection; J91.8 Pleural effusion in other conditions classified elsewhere; J18.9 Pneumonia, unspecified organism; I11.0 Hypertensive heart disease with heart failure; E78.5 Hyperlipidemia, unspecified; D53.9 Nutritional anemia, unspecified; D75.839 Thrombocytosis, unspecified; I08.3 Combined rheumatic disorders of mitral, aortic and tricuspid valves; N32.81 Overactive bladder; Z96.1 Presence of intraocular lens; R00.1 Bradycardia, unspecified; E03.9 Hypothyroidism, unspecified; F17.210 Nicotine dependence, cigarettes, uncomplicated; Z68.24 Body mass index [BMI] 24.0-24.9, adult; Z88.1 Allergy status to other antibiotic agents; Z88.7 Allergy status to serum and vaccine; Z90.710 Acquired absence of both cervix and uterus; Z98.51 Tubal ligation status; Y93.89 Activity, other specified; Y92.89 Other specified places as the place of occurrence of the external cause; Y99.8 Other external cause status; Z79.82 Long term (current) use of aspirin; Z79.1 Long term (current) use of non-steroidal anti-inflammatories (NSAID); Z79.899 Other long term (current) drug therapy; Z99.81 Dependence on supplemental oxygen; Z98.42 Cataract extraction status, left eye; Z98.41 Cataract extraction status, right eye

== ENCOUNTER 2023-10-12 21:11 | Emergency (ER) | payer OTHER ==
[~2023-10-12] VITALS: Ht 167.6 cm; Wt 70.8 kg
[~2023-10-12 21:11] MED LIST changes: +ALBUTEROL2.5 MG/0.5 INH; +BUMETANIDE1 MG PO; +CELEXA10 MG PO; +CITALOPRAM20 MG PO; +DOXYCYCLINE MO100 MG PO; +FISH OIL 1,2001 EACH PO; +FUROSEMIDE40 MG PO; +HYDROCODONE-AC1 EAC2 PO; +LEVOXYL125 MCG PO; +MIRTAZAPINE30 M2 PO; +MUCUS RELIEF600 MG PO; +OMNICEF300 MG PO; +SENNA-PLUS TAB1 EACH PO; +SOLU-MEDRO40 MG/1 ML IV; +TRELEGY ELLIPT1 EAC1 INH; +TYLENOL EXTRA500 MG PO; +VITAMIN D350 MC2 GT; +VITAMIN D350 MCG PO
[2023-10-12 21:15] VITALS: BP 172/56
[2023-10-12 21:45] LABS: BILIRUBIN Negative (Negative); BLOOD Negative (Negative); CLARITY Clear (Clear); COLOR Yellow (Yellow); GLUCOSE Negative (Negative); KETONE Negative (Negative); LEUKO ESTERASE 1+ (Negative); NITRITE Negative (Negative)
[2023-10-12 21:55] LABS: BACTERIA 1+; RBC 0-2 rbc/hpf (0-2); WBC 21-30 wbc/hpf (0-5)
[2023-10-12 21:56] LABS: HEMATOCRIT 30.1 % (37.0-47.0); MEAN CELL VOLUME 90.1 fl (81.0-99.0); MEAN CORPUSCULAR HGB 26.3 pg (27.0-31.0); MEAN CORPUSCULAR HGB CONC 29.2 g/dl (33.0-37.0); MEAN PLATELET VOLUME 10.4 fl (9.6-12.3); NUCLEATED RED BLOOD CELL 0.2 % (0.0-0.0); PLATELET COUNT AUTOMATED 378 10*3/uL (130-400); RED BLOOD COUNT 3.34 10*6/uL (4.10-5.10); RED CELL DISTRI WIDTH 22.4 % (0-14.5); WHITE BLOOD COUNT 8.1 10*3/uL (4.8-10.8)
[2023-10-12 21:57] LABS: MANUAL DIFF REFLEX YES
[2023-10-12 22:02] LABS: BUN 12 mg/dl (9-23); CHLORIDE 104 mmol/L (98-107); POTASSIUM 3.8 mmol/L (3.4-5.1)
[2023-10-12 22:08] LABS: BASOPHILS 1 % (0-1); PLATELET SUFFICIENCY NORMAL (NORMAL); TOTAL CELLS COUNTED 100 #CELLS
[2023-10-12 22:09] LABS: TARGET CELLS FEW
[2023-10-12] MEDS ORDERED: OMNICEF300 MG PO ×2 (22:25→22:50)
[2023-10-12] MEDS ORDERED: Water, Sterile 10 ML VIAL ONE (23:12)
== END 2023-10-12 22:43 | disposition home or self-care (01) ==
LOC: ED 21:11
PROVIDERS: Nurse Practitioner Family
DX: N39.0 Urinary tract infection, site not specified (principal); I50.9 Heart failure, unspecified; D64.9 Anemia, unspecified; J44.9 Chronic obstructive pulmonary disease, unspecified; F32.A Depression, unspecified; I10 Essential (primary) hypertension; E78.5 Hyperlipidemia, unspecified; M19.90 Unspecified osteoarthritis, unspecified site; F17.200 Nicotine dependence, unspecified, uncomplicated; Z88.8 Allergy status to other drugs, medicaments and biological substances; Z98.51 Tubal ligation status; Z90.710 Acquired absence of both cervix and uterus; Z98.890 Other specified postprocedural states